=== PATIENT | male | born 1950 | race Caucasian/White ===

== ENCOUNTER 2016-08-15 14:43 | Observation (INO) | payer OTHER ==
--- NOTE | 2016-08-15 14:55 | DR.WEAKNES ---
HPI - Time Seen Time seen: 14:45 - Primary Care Physician Primary Care Physician: luigi - Complaints Chief Complaint:: patient stated he has been weak since friday but today he was unable to sit up by himself. patient stated they called dr meyers and he said to call non emergancy trans port to bring to the er. - Reviewed Nurses Notes Reviewed: Yes - Source History Provided: Patient, EMS - Mode of Arrival Mode of Arrival: EMS - Timing Onset of Chief Complaint: 08/11/16 Since onset, symptoms are:: Unchanged Symptom Onset: Known Onset of Symptoms Start Date: 08/11/16 Onset of Symptoms Start Time: 15:00 - Duration Duration: Since Onset Duration: Days - Context Onset: Spontaneous Symptoms: Weakness, Difficulty walking. denies: Difficulty talking History of: CVA Stroke Symptoms: Weakness of limb - Location Weakness Location: Right, Arm, Leg - Associated Signs and Symptoms Associated Signs and Symptoms: None PMH - PMH Past Medical History: Yes Past Medical History: Coronary Artery Disease, Diabetes, Dyslipidemia, Hypertension Past Surgical History: Yes Surgical History: CABG/Valve Surgery, Ortho Surgery - Family History History of Family Medical Conditions: Yes Family Medical History: Diabetes Mellitus, Coronary Artery Disease, Hypertension - Social History Does patient currently use any type of tobacco product: No Have you used tobacco products in the last 12 months: No Type of Tobacco Use: None Does any household member use tobacco: No Do you use any recreational Drugs:: No Lives With: Family Lives Where: Home - infectious screening In the last 2 months have you had wt loss of >10#?: NO Have you had fever, night sweats or hemotysis?: No Have you traveled outside the country in the last 6 months?: No Isolation: Standard ROS - Review of Systems Constitutional: No Symptoms Reported, Weakness Eyes: No Symptoms Reported ENTM: No Symptoms Reported Respiratoy: No Symptoms Reported Cardiovascular: No Symptoms Reported Gastrointestinal/Abdominal: No Symptoms Reported Genitourinary: No Symptoms Reported Neurological: No Symptoms Reported Musculoskeletal: No Symptoms Reported Integumentary: No Symptoms Reported Hematologic/Lymphatic: No Symptoms Reported Endocrine: No Symptoms Reported Psychiatric: Depression All Other Systems: Reviewed and Negative PE - Vital Signs Vitals: Temperature 98.3 F Pulse Rate 60 Respiratory Rate 16 Blood Pressure [Left Arm] 120/69 Blood Pressure [Right Arm] 109/54 Blood Pressure 149/58 O2 Sat by Pulse Oximetry 97 - General Limitations: No Limitations General Appearance: Alert, In No Apparent Distress - Head Head Exam: Normal Inspection - Eyes Eye exam: Normal Appearance, EOMI. negative: Scleral Icterus, Conjunctival Injection Eyelids: Normal Inspection: Bilateral Pupils: Regular, Round: Bilateral Sclera/Conjunctival: Normal Inspection: Bilateral Anterior Chamber: Normal Inspection: Bilateral - ENT ENT Exam: Normal Oropharynx, Other (poor dentition) Mouth Exam: Normal Inspection. negative: Drooling, Trismus - Neck Neck Exam: Normal Inspection, Full ROM, Trachea Midline - Chest Chest Inspection: Normal Inspection - Respiratory Respiratory Exam: Normal Lung Sounds Bilat, Accessory Muscle Use, Chest Wall Tenderness Respiratory Exam: Bilateral Clear to Auscultation - Cardiovascular Cardiovascular Exam: Regular Rate - Abdominal Exam Abdominal Exam: Normal Inspection, Normal Bowel Sounds, Soft. negative: Distention - Extremities Extremities Exam: Normal Inspection - Back Back Exam: Normal Inspection - Neurologic Neurological Exam: Alert, Oriented X3, CN II-XII Intact Patient Oriented To: Person, Place, Time Speech: Fluid Speech Cranial Nerve Exam: EOM Function (II, III, IV, ): Normal, Facial Palsy (VII): Normal, Gag reflex (XI): Normal, Spinal Accessory Function (XI): Normal, Tongue Deviation: Normal - Psychiatric Psychiatric Exam: Depressed - Skin Skin Exam: Intact, Normal Color Course - Consultation Called: 16:10 Call Returned: 16:17 Consultation Comments: Case discussed with Dr. Meyers admit for Mri tomorrow ROR - Labs Reviewed Result Diagrams: 08/15/16 15:05 08/15/16 15:05 Laboratory: WBC 5.7 X10^3/uL (3.6-10.0) 08/15/16 15:05 RBC 4.78 X10^6/uL (4.7-6.0) 08/15/16 15:05 Hgb 13.7 g/dL (13.5-18.0) 08/15/16 15:05 Hct 41.2 % (42.0-54.0) L 08/15/16 15:05 MCV 86.2 fL (80.0-100.0) 08/15/16 15:05 MCH 28.7 pg (27.0-34.0) 08/15/16 15:05 MCHC 33.3 g/dL (33.0-35.0) 08/15/16 15:05 RDW 14.8 % (11.6-16.5) 08/15/16 15:05 Plt Count 213 X10^3/uL (150.0-450.0) 08/15/16 15:05 MPV 8.7 fL (7.4-11.0) 08/15/16 15:05 Neut % 63.3 % (42.0-75.0) 08/15/16 15:05 Lymph % 24.2 % (21.0-51.0) 08/15/16 15:05 [place] % 7.7 % (0.0-13.0) 08/15/16 15:05 Eos % 3.7 % (0.9-2.9) H 08/15/16 15:05 Baso % 1.1 % (0.2-1.0) H 08/15/16 15:05 Neut # 3.6 x10^3/uL (2.2-4.8) 08/15/16 15:05 Lymph # 1.4 X10^3/uL (1.3-2.9) 08/15/16 15:05 [place] # 0.4 x10^3/uL (0.3-0.8) 08/15/16 15:05 Eos # 0.2 x10^3/uL (0.0-0.2) 08/15/16 15:05 Baso # 0.1 X10^3/uL (0.0-0.1) 08/15/16 15:05 Absolute Nucleated RBC 0.0 /100WBC 08/15/16 15:05 INR Target Range - 08/15/16 15:05 INR 3.37 (0.8-1.3) H 08/15/16 15:05 Sodium 142 mmol/L (136-145) 08/15/16 15:05 Corrected Sodium 144 mmol/L (136-145) 08/15/16 15:05 Potassium 3.9 mmol/L (3.5-5.1) 08/15/16 15:05 Chloride 103 mmol/L (98-107) 08/15/16 15:05 Carbon Dioxide 30.6 mmol/L (21-32) 08/15/16 15:05 BUN 29 mg/dL (7-18) H 08/15/16 15:05 Creatinine 1.54 mg/dL (0.70-1.30) H 08/15/16 15:05 Est GFR (MDRD) Af Amer 59 (>60) 08/15/16 15:05 Est GFR (MDRD) Non-Af 49 (>60) L 08/15/16 15:05 Glucose 197 mg/dL (65-99) H 08/15/16 15:05 Calcium 8.5 mg/dL (8.5-10.1) 08/15/16 15:05 Corrected Calcium 9.1 mg/dL (8.5-10.1) 08/15/16 15:05 Total Bilirubin 0.70 mg/dL (0.2-1.0) 08/15/16 15:05 AST 26 Units/L (15-37) 08/15/16 15:05 ALT 20 Units/L (12-78) 08/15/16 15:05 Alkaline Phosphatase 57 Units/L (46-116) 08/15/16 15:05 Total Protein 7.1 g/dL (6.4-8.2) 08/15/16 15:05 Albumin 3.2 g/dL (3.4-5.0) L 08/15/16 15:05 Globulin 3.9 g/dL (2.5-4.5) 08/15/16 15:05 Albumin/Globulin Ratio 0.8 Ratio (1.1-2.1) L 08/15/16 15:05 - EKG Rate: 55 Rhythm: Afib Block: None Hypertrophy: None ST: Nonsp - Diagnosis Discharge Problem: Weakness - Discharge Plan Condition: Stable - Follow ups/Referrals Follow ups/Referrals: ROBERT LACEY [Primary Care Provider] - 3 days - Instructions Instructions: Weakness
[2016-08-15 15:21] LABS: BASOPHILS # (AUTO) 0.1 X10^3/uL (0.0-0.1); BASOPHILS % (AUTO) 1.1 % (0.2-1.0); EOSINOPHILS # (AUTO) 0.2 x10^3/uL (0.0-0.2); EOSINOPHILS % (AUTO) 3.7 % (0.9-2.9); HEMATOCRIT 41.2 % (42.0-54.0); HEMOGLOBIN 13.7 g/dL (13.5-18.0); LYMPHOCYTES # (AUTO) 1.4 X10^3/uL (1.3-2.9); LYMPHOCYTES % (AUTO) 24.2 % (21.0-51.0); MEAN CORPUSCULAR HEMOGLOBIN 28.7 pg (27.0-34.0); MEAN CORPUSCULAR HGB CONC 33.3 g/dL (33.0-35.0); MEAN CORPUSCULAR VOLUME 86.2 fL (80.0-100.0); MEAN PLATELET VOLUME 8.7 fL (7.4-11.0); MONOCYTES # (AUTO) 0.4 x10^3/uL (0.3-0.8); MONOCYTES % (AUTO) 7.7 % (0.0-13.0); NEUTROPHILS # (AUTO) 3.6 x10^3/uL (2.2-4.8); NEUTROPHILS % (AUTO) 63.3 % (42.0-75.0); PLATELET COUNT 213 X10^3/uL (150.0-450.0); RED BLOOD COUNT 4.78 X10^6/uL (4.7-6.0); RED CELL DISTRIBUTION WIDTH 14.8 % (11.6-16.5); WHITE BLOOD COUNT 5.7 X10^3/uL (3.6-10.0)
[2016-08-15 15:31] LABS: ALBUMIN 3.2 g/dL (3.4-5.0); CALCIUM 8.5 mg/dL (8.5-10.1); CARBON DIOXIDE 30.6 mmol/L (21-32); COR CA(FOR HYPOALB) 9.1 mg/dL (8.5-10.1); CREATININE 1.54 mg/dL (0.70-1.30); TOTAL PROTEIN 7.1 g/dL (6.4-8.2)
--- NOTE | 2016-08-15 16:18 | CT ---
HISTORY: Right-sided weakness and history of CVA. Noncontrast head CT examination. Comparison: None. Technique: Multiple axial images of the brain were obtained from the skull base to the vertex without administr ation of IV contrast. Findings: There is mild cerebral sulcal and cisternal prominence as well as atherosclerotic change i n the proximal intracranial carotid and vertebral arteries, which is not out of proportion to the pa tient's stated age. There is diffuse CT density alteration seen in the periventricular white matter of the high and mid-convexity, which is likely in the setting of small vessel disease and not out of proportion to the patient's stated age. There is no evidence for ventricular dilatation or CT evide nce for hydrocephalus or herniation syndrome. No midline shift is evident. No acute intraparenchymal hemorrhage or mass can be identified. No extra-axial fluid collections are seen. No alteration in the attenuation of the brain parenchyma can be identified to suggest acute or subacute ischemic kishan nge. However, if the patient's symptoms are clinically \T\ neurologically concerning for an acute is chemic event, then MR imaging of the brain with DWI sequencing would likely be beneficial to exclude an acute CVA. The paranasal sinuses and mastoid air cells are clear. The remaining extracranial str uctures are unremarkable in appearance as well. IMPRESSION: 1. No acute intracranial process or hemorrhage identified. 2. Age-appropriate intra-cranial changes of advancing age. Reported By:
[2016-08-15 18:51] VITALS: BMI 39.8
[2016-08-15] MEDS: NS 1000 ML 1,000 ML IV SCH (20:12)
[2016-08-15] MEDS: HumuLIN R SC PRN (20:18)
[2016-08-16 00:35] LABS: BILIRUBIN,URINE NEGATIVE (NEGATIVE); BLOOD/HEMOGLOBIN,URINE NEGATIVE (NEGATIVE); GLUCOSE, URINE NEGATIVE (NEGATIVE); KETONES,URINE NEGATIVE (NEGATIVE); LEUKOCYTE ESTERASE ,URINE 2+ (NEGATIVE); NITRITES,URINE NEGATIVE (NEGATIVE); PH,URINE 6.5 (5.0 - 8.0); PROTEIN,URINE 1+ (NEGATIVE); UROBILINOGEN,URINE 3+ (NORMAL)
[2016-08-16 00:48] LABS: APPEARANCE,URINE SLIGHTLY HAZY (CLEAR); BACTERIA,URINE NEGATIVE /HPF (NEGATIVE); COLOR,URINE AMBER (YELLOW); RBC,URINE 0-3 /HPF (NEGATIVE); SQUAMOUS EPITHELIAL CELL,UR FEW /HPF (NEGATIVE)
[2016-08-16 00:49] LABS: SPERM,URINE FEW /HPF (NEGATIVE)
[2016-08-16] MEDS: NS 1000 ML 1,000 ML IV SCH ×3 (05:42→23:54)
[2016-08-16 05:59] LABS: ALANINE AMINOTRANSFERASE 19 Units/L (12-78); ALBUMIN 3.2 g/dL (3.4-5.0); ALKALINE PHOSPHATASE 52 Units/L (46-116); ASPARTATE AMINO TRANSFERASE 26 Units/L (15-37); BLOOD UREA NITROGEN 26 mg/dL (7-18); CALCIUM 8.8 mg/dL (8.5-10.1); CARBON DIOXIDE 30.1 mmol/L (21-32); CHLORIDE 104 mmol/L (98-107); COR CA(FOR HYPOALB) 9.4 mg/dL (8.5-10.1); COR NA(FOR HYPERGLY) 144 mmol/L (136-145); CREATININE 1.42 mg/dL (0.70-1.30); GLUCOSE 167 mg/dL (65-99); SODIUM 142 mmol/L (136-145); TOTAL PROTEIN 7.1 g/dL (6.4-8.2); eGFR BLACK RACES > 60 (>60); eGFR NON BLACK RACES 54 (>60)
[2016-08-16 06:11] LABS: BASOPHILS # (AUTO) 0.1 X10^3/uL (0.0-0.1); BASOPHILS % (AUTO) 1.3 % (0.2-1.0); EOSINOPHILS # (AUTO) 0.2 x10^3/uL (0.0-0.2); EOSINOPHILS % (AUTO) 3.4 % (0.9-2.9); HEMATOCRIT 42.2 % (42.0-54.0); HEMOGLOBIN 13.9 g/dL (13.5-18.0); LYMPHOCYTES # (AUTO) 1.7 X10^3/uL (1.3-2.9); LYMPHOCYTES % (AUTO) 24.6 % (21.0-51.0); MEAN CORPUSCULAR HEMOGLOBIN 28.7 pg (27.0-34.0); MEAN CORPUSCULAR HGB CONC 32.9 g/dL (33.0-35.0); MEAN CORPUSCULAR VOLUME 87.2 fL (80.0-100.0); MONOCYTES # (AUTO) 0.4 x10^3/uL (0.3-0.8); MONOCYTES % (AUTO) 6.1 % (0.0-13.0); NEUTROPHILS # (AUTO) 4.5 x10^3/uL (2.2-4.8); NEUTROPHILS % (AUTO) 64.6 % (42.0-75.0); PLATELET COUNT 205 X10^3/uL (150.0-450.0); RED BLOOD COUNT 4.84 X10^6/uL (4.7-6.0); RED CELL DISTRIBUTION WIDTH 14.8 % (11.6-16.5)
[2016-08-16] MEDS ORDERED: BUTT CREAM (COMPOUND) ONE (11:49)
[2016-08-16] MEDS ORDERED: NORCO 10/325 TAB PO PRN (13:33)
[2016-08-16] MEDS ORDERED: [UNRECOGNIZED DRUG - OTHER] PO SCH (14:00)
--- NOTE | 2016-08-16 14:21 | MRI ---
MRI OF THE BRAIN WITHOUT AND WITH IV CONTRAST MRA OF THE BRAIN WITHOUT IV CONTRAST CLINICAL INDICATION: Weakness and history of CVA. TECHNIQUE: Pre-contrast T1-w, T2, and diffusion-w sequences of the brain with ADC maps. Post-contras t images of the brain. Intravenous contrast material was administered for the examination. 3-D time- of-flight imaging of the intracranial circulation was performed. COMPARISON: CT HEAD 08/15/2016 FINDINGS: MRI brain: Diffuse patchy and confluent periventricular and subcortical T2/FLAIR signal with associa guy volume loss.. There is no mass or mass-effect, or abnormal extra-axial fluid collection. Diffus ion imaging shows no hyperacute, acute, or early subacute infarction. The ventricles are normal in s ize, shape and position. There are normal signal voids in the larger intracranial vessels. The paran [place] sinuses and mastoid air cells are predominantly clear. 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 There is no abnormal brain parenchymal or leptomeningeal enhancement. MRA head:The anterior circulation demonstrates normal anatomic findings. The internal carotid arter y, M1 segment, and A1 segments do not demonstrates atherosclerotic changes. No aneurysmal changes o r evidence for vascular malformation can be identified. Posterior communicating arteries are not we ll defined. The basal vertebral system is normal in its appearance. IMPRESSION: 1. No acute intracranial abnormality. Diffuse patchy and confluent periventricular and subcortical T 2/FLAIR signal with associated volume loss. 2. Normal MRA of the brain. Reported By:
--- NOTE | 2016-08-16 14:48 | DR.H&P ---
H&P - History & Physical for Day of: H&P Date: 08/15/16 - Chief Complaint Chief Complaint: WEAKNESS, UNABLE TO SIT OR STAND - Allergies Allergies/Adverse Reactions: Allergies Allergy/AdvReac Type Severity Reaction Status Date / Time Penicillins Allergy Unknown Verified 01/21/14 19:24 - History of Present Illness History of Present Illness: THIS IS A 65 YEAR OLD MALE, WHO IS A PATIENT OF OURS. HE PRESENTS TO THE EMERGENCY ROOM, VIA EMS, WITH COMPLAINTS OF WEAKNESS WITH INABILITY TO STAND OR SIT UP BY HIMSELF. PATIENT REPORTS SYMPTOMS STARTED 08/11/16 AND HAVEN'T IMPROVED. HE REPORTS WORSENING WEAKNESS. PATIENT' S PRIOR LEVEL OF FUNCTION WAS AMBULATING AND TAKING CARE OF HIMSELF AT HOME. PATIENT HAS NO DIFFICULTY WITH SPEECH OR COMPLETING THOUGHTS. VITAL SIGNS STABLE ON ARRIVAL. LABS AND CT OBTAINED. CBC WNL EXCEPT: HCT 41.2. CMP WNL EXCEPT: BUN/CREAT 29/1.54, GFR 49, GLUCOSE 197, ALBUMIN 3.2. INR 3.37. URINALYSIS WNL. TOXICOLOGY POSITIVE FOR OPIATES, WHICH IS CONCURRENT WITH PATIENT'S HOME MEDICATIONS. BRAIN CT REPORTS: NO ACUTE INTRACRANIAL PROCESS OR HEMORRHAGE; AGE APPROPRIATE INTRA-CRANIAL CHANGES OF ADVANCING AGE. EKG: ATRIAL FIBRILLATION, RATE 55. PATIENT HAS A HISTORY SIGNIFICANT FOR CAD, HYPERTENSION, ATRIAL FIBRILLATION, AND VALVULAR HEART DISEASE WITH VALVE SURGERY. WE WILL ADMIT PATIENT FOR FURTHER TREATMENT AND EVALUATION. WE WILL MONTIOR ON TELEMETRY AND PLAN FOR MRI IN AM. WE WILL FOLLOW UP WITH ADDITIONAL LABS IN AM. - Past Medical History Past Medical History: Angina, Anxiety, Arthritis, Coronary Artery Disease, Depression, Diabetes, Dyslipidemia, Hypertension, Kidney Stones Additional Medical History: Atrial fibrillation, Valvular Hear Disease, Pneumonia, Muscle Weakness, Back Pain - Past Surgical History Surgical History: CABG/Valve Surgery, Ortho Surgery Additional Surgical History: Femur Surgery, Ankle Surgery, Left Shoulder Replacment, Metal Heart Valve - Family History Family Medical History: Diabetes Mellitus, Coronary Artery Disease, Hypertension - Social History Does patient currently use any type of tobacco product: No Have you used tobacco products in the last 12 months: No Type of Tobacco Use: None Does any household member use tobacco: No Alcohol Use: None Drug Use: None - Medications Home Medications: Clonazepam [Clonazepam] 1 mg PO HS 08/15/16 [History Confirmed 08/15/16] Finasteride [PROSCAR 5 MG *] 5 mg PO DAILY 08/15/16 [History Confirmed 08/15/16] Fluticasone-Salmeterol 250/50 [ADVAIR DISKUS 250/50 60-DOSE *] 1 inh INH BID [History Confirmed 08/15/16] Furosemide [LASIX TAB 40 MG *] 80 mg PO DAILY 08/15/16 [History Confirmed ] Hydroxyzine HCl 50 mg PO TID PRN 08/15/16 [History Confirmed 08/15/16] Insulin Aspart [Novolog Flexpen] 0 units SUBCUT ACHS 08/15/16 [History Confirmed 08/15/16] Insulin Degludec [Tresiba Flextouch] 0 - 60 units SUBCUT BID 08/15/16 [History Confirmed 08/16/16] Misc Home Med [Patient's Home Medication (Non-PO)] 1 cap PO .TWICE A WEEK [History Confirmed 08/15/16] Morphine Sulfate [Ms Contin] 30 mg PO BID 08/15/16 [History Confirmed 08/15/16] Potassium Chloride [Klor-Con Sprinkle] 10 meq PO QID 08/15/16 [History Confirmed 08/15/16] Ropinirole Hydrochloride [Ropinirole HCl] 4 mg PO TID 08/15/16 [History Confirmed 08/15/16] Sertraline HCl [ZOLOFT 100 MG *] 100 mg PO DAILY 08/15/16 [History Confirmed ] Tamsulosin HCl 0.4 mg PO HS 08/15/16 [History Confirmed 08/15/16] Warfarin Sodium [Warfarin Sodium] 6 mg PO DAILY 08/15/16 [History Confirmed ] - Review of Systems Constitutional: Weakness, Malaise Eyes: No Symptoms Reported. denies: Pain, Vision Change, Conjunctivae Inflammation, Eyelid Inflammation, Redness ENT: No Symptoms Reported. denies: Ear Pain, Ear Discharge, Nose Pain, Nose Discharge, Nose Congestion, Mouth Pain, Mouth Swelling, Throat Pain, Throat Swelling Respiratory: No Symptoms Reported. denies: Cough, Shortness of Breath, Hemoptysis, SOB with Excertion, Pleuritic Pain, Sputum, Wheezing Cardiovascular: No Symptoms Reported. denies: Chest Pain, Palpitations, Orthopnea, Paroxysmal Noc. Dyspnea, Edema, Light Headedness Gastrointestinal: No Symptoms Reported. denies: Nausea, Vomiting, Abdominal Pain, Diarrhea, Constipation, Melena, Hematochezia Genitourinary: No Symptoms Reported. denies: Dysuria, Frequency, Incontinence, Hematuria, Retention Musculoskeletal: Other (Generalized Muscle Weakness) Skin: No Symptoms Reported. denies: Rash, Lesions Neurological: No Symptoms Reported. denies: Weakness, Numbness, Incoordination , Change in Speech, Confusion, Seizures - Physical Exam Vital Signs: Temperature 97 F Pulse Rate [Left Radial] 63 Respiratory Rate 15 Blood Pressure [Left Arm] 114/38 O2 Sat by Pulse Oximetry 97 Oriented: Normal, Time, Person, Place Eyes: Normal. negative: Blurred Vision, Diplopia, Discharge, Pain, Redness, Photophobia Ear: Normal. negative: Swelling, Ecchymosis, Hemotypanum, Abrasion, Laceration Nose: Normal. negative: Injected, Discharge, Blood Throat: Normal. negative: Tonsillar Hypertrophy, Red, Exudate Respiratory: Clear Throughout Cardiovascular: Irregular (Irreg, Irreg). negative: Murmur, Edema : Normal. negative: Dysuria, Hematuria, Frequency, Discharge, Testicular Pain Auscultation: Bowel Sounds: Normal. negative: Bruit Palpation: Normal. negative: Spleen Enlarged, Liver Enlarged, Mass Pulsatile Tenderness: Normal. negative: Rebound, Guarding, Rigidity Skin: Decreased [place]urg[place]. negative: Diaphoresis, Wound, Bruising, Ecchymosis Musculoskeletal: Instability Psychiatric: Normal Mood Description: Calm, Appropriate Affect: Normal Speech Pattern: Clear, Appropriate - Assessment/Plan (1) Weakness Status: Acute Plan: ADMIT PATIENT, START IV FLUIDS, MRI IN AM, MONITOR. (2) Atrial fibrillation Qualifiers: Atrial fibrillation type: chronic Qualified Code(s): I48.2 - Chronic atrial fibrillation Status: Chronic (3) Coronary atherosclerosis of [place] coronary artery Qualifiers: [place] vs. transplanted heart: N Associated angina: A Status: Chronic (4) Diabetic neuropathy Qualifiers: Diabetes mellitus type: D Diabetes mellitus complication detail: D Status: Chronic (5) Essential hypertension, benign Status: Chronic (6) Mixed hyperlipidemia Status: Chronic (7) Pain in joint, multiple sites Status: Chronic (8) Type II diabetes mellitus, uncontrolled Qualifiers: Diabetes mellitus complication status: D Diabetes mellitus complication detail: D Diabetic retinopathy severity: D Proliferative retinopathy type: P Diabetes mellitus macular edema: D Diabetes mellitus mcc insulin use : D Laterality: L Chronic kidney disease stage: C Status: Chronic
[2016-08-16] MEDS ORDERED: ZOLOFT PO ONE (15:18)
[2016-08-16] MEDS: ZAROXOYLN PO SCH (15:23)
[2016-08-16] MEDS: PROSCAR PO SCH (15:23)
[2016-08-16] MEDS: M.S. CONTIN 30 MG EXTENDED RELEASE PO SCH ×2 (15:23→21:24)
[2016-08-16] MEDS: PriLOSEC PO SCH ×2 (15:24→21:25)
[2016-08-16] MEDS: LASIX PO SCH (15:24)
[2016-08-16] MEDS: ZOLOFT PO SCH (15:25)
[2016-08-16] MEDS: HumuLIN R SC PRN ×2 (17:11→21:27)
--- NOTE | 2016-08-16 18:49 | PCM.PROG ---
Progress Note - Progress Note for Day of Date: 08/16/16 - Subjective Subjective: PATIENT CONTINUES WITH SEVERE GENERALIZED WEAKNESS. PATIENT CONTINUES TO BE UNABLE TO STAND. PATIENT IS SCHEDULED FOR AN MRI OF BRAIN TODAY TO RULE OUT CVA. VITALS ARE STABLE. AT BEDSIDE. CBC WNL. CMP WNL EXCEPT: BUN/CREAT 26/1.42, GFR 54, GLUCOSE 167, ALBUMIN 3.2. WE WILL CONSULT PHYSICAL THERAPY FOR MUSCLE STRENGTHENING, CONTINUE TO MONITOR ON TELEMETRY, AND FOLLOW UP IN AM WITH LABS. - Past Medical Family Social History Past Med/Fam/Surg Hx: No changes since H&P Allergies: Allergies Penicillins Allergy (Unknown, Verified 01/21/14 19:24) - Review of Systems ROS: No change since H&P - Vital Signs and I&O's Vital Signs: Temperature 97 F Pulse Rate [Left Radial] 63 Respiratory Rate 15 Blood Pressure [Left Arm] 114/38 O2 Sat by Pulse Oximetry 97 Intake and Output: Intake & Output 08/14/16 08/15/16 08/16/16 08/17/16 11:59 11:59 11:59 11:59 Intake Total 1379 2050 Output Total 450 900 Balance 929 1150 - Physical Exam Oriented: Normal, Time, Person, Place Eyes: Normal. negative: Blurred Vision, Diplopia, Discharge, Pain, Redness, Photophobia Ear: Normal. negative: Swelling, Ecchymosis, Hemotypanum, Abrasion, Laceration Nose: Normal. negative: Injected, Discharge, Blood Throat: Normal. negative: Tonsillar Hypertrophy, Red, Exudate Respiratory: Normal Cardiovascular: Irregular (Irreg, Irreg). negative: Murmur, Edema : Normal. negative: Dysuria, Hematuria, Frequency, Discharge, Testicular Pain Auscultation: Bowel Sounds: Normal. negative: Bruit Palpation: Normal. negative: Spleen Enlarged, Liver Enlarged, Mass Pulsatile Tenderness: Normal. negative: Rebound, Guarding, Rigidity Skin: Decreased Turgur. negative: Diaphoresis, Wound, Bruising, Ecchymosis Musculoskeletal: Instability Psychiatric: Normal Mood Description: Calm, Appropriate Affect: Normal Speech Pattern: Clear - Laboratory and Diagnostics Result Diagrams: 08/16/16 05:07 08/16/16 05:07 Labs: Laboratory WBC 7.0 X10^3/uL (3.6-10.0) 08/16/16 05:07 RBC 4.84 X10^6/uL (4.7-6.0) 08/16/16 05:07 Hgb 13.9 g/dL (13.5-18.0) 08/16/16 05:07 Hct 42.2 % (42.0-54.0) 08/16/16 05:07 MCV 87.2 fL (80.0-100.0) 08/16/16 05:07 MCH 28.7 pg (27.0-34.0) 08/16/16 05:07 MCHC 32.9 g/dL (33.0-35.0) L 08/16/16 05:07 RDW 14.8 % (11.6-16.5) 08/16/16 05:07 Plt Count 205 X10^3/uL (150.0-450.0) 08/16/16 05:07 MPV 9.0 fL (7.4-11.0) 08/16/16 05:07 Neut % 64.6 % (42.0-75.0) 08/16/16 05:07 Lymph % 24.6 % (21.0-51.0) 08/16/16 05:07 [place] % 6.1 % (0.0-13.0) 08/16/16 05:07 Eos % 3.4 % (0.9-2.9) H 08/16/16 05:07 Baso % 1.3 % (0.2-1.0) H 08/16/16 05:07 Neut # 4.5 x10^3/uL (2.2-4.8) 08/16/16 05:07 Lymph # 1.7 X10^3/uL (1.3-2.9) 08/16/16 05:07 [place] # 0.4 x10^3/uL (0.3-0.8) 08/16/16 05:07 Eos # 0.2 x10^3/uL (0.0-0.2) 08/16/16 05:07 Baso # 0.1 X10^3/uL (0.0-0.1) 08/16/16 05:07 Absolute Nucleated RBC 0.1 /100WBC 08/16/16 05:07 INR Target Range - 08/16/16 13:50 INR 3.11 (0.8-1.3) H 08/16/16 13:50 Sodium 142 mmol/L (136-145) 08/16/16 05:07 Corrected Sodium 144 mmol/L (136-145) 08/16/16 05:07 Potassium 4.1 mmol/L (3.5-5.1) 08/16/16 05:07 Chloride 104 mmol/L (98-107) 08/16/16 05:07 Carbon Dioxide 30.1 mmol/L (21-32) 08/16/16 05:07 BUN 26 mg/dL (7-18) H 08/16/16 05:07 Creatinine 1.42 mg/dL (0.70-1.30) H 08/16/16 05:07 Est GFR (MDRD) Af Amer > 60 (>60) 08/16/16 05:07 Est GFR (MDRD) Non-Af 54 (>60) L 08/16/16 05:07 Glucose 167 mg/dL (65-99) H 08/16/16 05:07 Calcium 8.8 mg/dL (8.5-10.1) 08/16/16 05:07 Corrected Calcium 9.4 mg/dL (8.5-10.1) 08/16/16 05:07 Total Bilirubin 0.60 mg/dL (0.2-1.0) 08/16/16 05:07 AST 26 Units/L (15-37) 08/16/16 05:07 ALT 19 Units/L (12-78) 08/16/16 05:07 Alkaline Phosphatase 52 Units/L (46-116) 08/16/16 05:07 Total Protein 7.1 g/dL (6.4-8.2) 08/16/16 05:07 Albumin 3.2 g/dL (3.4-5.0) L 08/16/16 05:07 Globulin 3.9 g/dL (2.5-4.5) 08/16/16 05:07 Albumin/Globulin Ratio 0.8 Ratio (1.1-2.1) L 08/16/16 05:07 Specimen Type Random urine 08/16/16 00:14 Urine Color [place] (YELLOW) 08/16/16 00:14 Urine Appearance Slightly hazy (CLEAR) 08/16/16 00:14 Urine pH 6.5 (5.0 - 8.0) 08/16/16 00:14 Ur Specific [place] 1.015 (1.000-1.030) 08/16/16 00:14 Urine Protein 1+ (NEGATIVE) 08/16/16 00:14 Urine Glucose (UA) Negative (NEGATIVE) 08/16/16 00:14 Urine Ketones Negative (NEGATIVE) 08/16/16 00:14 Urine Occult Blood Negative (NEGATIVE) 08/16/16 00:14 Urine Nitrite Negative (NEGATIVE) 08/16/16 00:14 Urine Bilirubin Negative (NEGATIVE) 08/16/16 00:14 Urine Urobilinogen 3+ (NORMAL) 08/16/16 00:14 Ur Leukocyte Esterase 2+ (NEGATIVE) 08/16/16 00:14 Urine RBC 0-3 /HPF (NEGATIVE) 08/16/16 00:14 Urine WBC 2-6 /HPF (NEGATIVE) 08/16/16 00:14 Ur Squamous Epith Cells Few /HPF (NEGATIVE) 08/16/16 00:14 Urine Bacteria Negative /HPF (NEGATIVE) 08/16/16 00:14 Urine Sperm Few /HPF (NEGATIVE) 08/16/16 00:14 Ur Culture Indicated? No/not indicated 08/16/16 00:14 Digoxin 1.07 ng/mL (0.9-2) 08/16/16 13:50 Urine Opiates Screen Positive (NEG=<300) 08/16/16 00:14 Urine Methadone Screen Negative (NEG=<300) 08/16/16 00:14 Ur Barbiturates Screen Negative (NEG=<200) 08/16/16 00:14 Ur Phencyclidine Scrn Negative (NEG=<25) 08/16/16 00:14 Ur Amphetamines Screen Negative (NEG=<1000) 08/16/16 00:14 U Benzodiazepines Scrn Positive (NEG=<200) 08/16/16 00:14 Urine Cocaine Screen Negative (NEG=<300) 08/16/16 00:14 U Marijuana (THC) Screen Negative (NEG=<50) 08/16/16 00:14 - Plan (1) Weakness Status: Acute Plan: CONSULT PHYSICAL THERAPY, OBTAIN MRI TODAY, CONTINUE IV FLUIDS, MONITOR. (2) Dehydration Status: Acute Plan: CONTINUE IV FLUIDS, MONITOR LABS. (3) Atrial fibrillation Status: Chronic Qualifiers: Atrial fibrillation type: chronic Qualified Code(s): I48.2 - Chronic atrial fibrillation (4) Coronary atherosclerosis of [place] coronary artery Status: Chronic Qualifiers: [place] vs. transplanted heart: N Associated angina: A (5) Diabetic neuropathy Status: Chronic Qualifiers: Diabetes mellitus type: D Diabetes mellitus complication detail: D (6) Essential hypertension, benign Status: Chronic (7) Mixed hyperlipidemia Status: Chronic (8) Pain in joint, multiple sites Status: Chronic (9) Type II diabetes mellitus, uncontrolled Status: Chronic Qualifiers: Diabetes mellitus complication status: D Diabetes mellitus complication detail: D Diabetic retinopathy severity: D Proliferative retinopathy type: P Diabetes mellitus macular edema: D Diabetes mellitus nursing home insulin use : D Laterality: L Chronic kidney disease stage: C
[2016-08-16] MEDS: ADVAIR DISKUS 250/50 IN SCH (20:37)
[2016-08-16] MEDS: SNACK - Diabetic Appropriate PO SCH (21:00)
[2016-08-16] MEDS: REQUIP PO SCH (21:24)
[2016-08-16] MEDS: KLONOPIN TAB 1 MG PO SCH (21:25)
[2016-08-16] MEDS: FLOMAX PO SCH (21:25)
[2016-08-16] MEDS: COUMADIN TAB 6 MG PO SCH (21:25)
[2016-08-16] MEDS: FENOFIBRATE PO SCH (21:26)
[2016-08-17] MEDS: NS 1000 ML 1,000 ML IV SCH ×2 (00:40→13:56)
[2016-08-17 05:28] LABS: BASOPHILS # (AUTO) 0.1 X10^3/uL (0.0-0.1); BASOPHILS % (AUTO) 1.2 % (0.2-1.0); EOSINOPHILS # (AUTO) 0.1 x10^3/uL (0.0-0.2); EOSINOPHILS % (AUTO) 2.1 % (0.9-2.9); HEMATOCRIT 40.6 % (42.0-54.0); HEMOGLOBIN 13.4 g/dL (13.5-18.0); LYMPHOCYTES # (AUTO) 1.4 X10^3/uL (1.3-2.9); LYMPHOCYTES % (AUTO) 23.4 % (21.0-51.0); MEAN CORPUSCULAR HEMOGLOBIN 28.6 pg (27.0-34.0); MEAN CORPUSCULAR HGB CONC 32.9 g/dL (33.0-35.0); MEAN CORPUSCULAR VOLUME 86.8 fL (80.0-100.0); MEAN PLATELET VOLUME 8.6 fL (7.4-11.0); MONOCYTES # (AUTO) 0.4 x10^3/uL (0.3-0.8); NEUTROPHILS # (AUTO) 3.9 x10^3/uL (2.2-4.8); NEUTROPHILS % (AUTO) 66.3 % (42.0-75.0); PLATELET COUNT 197 X10^3/uL (150.0-450.0); RED BLOOD COUNT 4.67 X10^6/uL (4.7-6.0); RED CELL DISTRIBUTION WIDTH 14.6 % (11.6-16.5); WHITE BLOOD COUNT 5.8 X10^3/uL (3.6-10.0)
[2016-08-17] MEDS: REQUIP PO SCH ×3 (05:31→20:51)
[2016-08-17 05:38] LABS: ALANINE AMINOTRANSFERASE 19 Units/L (12-78); ALBUMIN 3.1 g/dL (3.4-5.0); ALKALINE PHOSPHATASE 51 Units/L (46-116); ASPARTATE AMINO TRANSFERASE 31 Units/L (15-37); BLOOD UREA NITROGEN 21 mg/dL (7-18); CALCIUM 8.2 mg/dL (8.5-10.1); CARBON DIOXIDE 31.3 mmol/L (21-32); CHLORIDE 101 mmol/L (98-107); COR CA(FOR HYPOALB) 8.9 mg/dL (8.5-10.1); COR NA(FOR HYPERGLY) 143 mmol/L (136-145); CREATININE 1.36 mg/dL (0.70-1.30); GLUCOSE 264 mg/dL (65-99); SODIUM 139 mmol/L (136-145); eGFR BLACK RACES > 60 (>60); eGFR NON BLACK RACES 56 (>60)
[2016-08-17 05:40] LABS: HEMOGLOBIN A1C 8.2 % (4.5-6.2)
[2016-08-17] MEDS: HumuLIN R SC PRN ×4 (06:11→20:52)
[2016-08-17] MEDS ORDERED: ZOLOFT PO ONE (08:30)
[2016-08-17] MEDS: LASIX PO SCH (08:53)
[2016-08-17] MEDS: ZOLOFT PO SCH (08:53)
[2016-08-17] MEDS: PriLOSEC PO SCH ×2 (08:53→20:49)
[2016-08-17] MEDS: PROSCAR PO SCH (08:53)
[2016-08-17] MEDS: M.S. CONTIN 30 MG EXTENDED RELEASE PO SCH ×2 (08:53→20:49)
[2016-08-17] MEDS: ZAROXOYLN PO SCH (08:53)
[2016-08-17] MEDS: ADVAIR DISKUS 250/50 IN SCH ×2 (08:59→20:15)
[2016-08-17] MEDS ORDERED: TRICOR TAB 145 MG PO SCH (09:00)
[2016-08-17] MEDS: KLONOPIN TAB 1 MG PO SCH (20:49)
[2016-08-17] MEDS: FLOMAX PO SCH (20:51)
[2016-08-17] MEDS: COUMADIN TAB 6 MG PO SCH (20:54)
[2016-08-17] MEDS: FENOFIBRATE PO SCH (20:55)
[2016-08-17] MEDS: SNACK - Diabetic Appropriate PO SCH (20:58)
[2016-08-18] MEDS: NS 1000 ML 1,000 ML IV SCH ×2 (03:34→16:28)
[2016-08-18] MEDS: HumuLIN R SC PRN ×4 (05:41→21:01)
[2016-08-18] MEDS: REQUIP PO SCH ×3 (05:41→20:59)
[2016-08-18 06:58] LABS: BASOPHILS # (AUTO) 0.1 X10^3/uL (0.0-0.1); EOSINOPHILS # (AUTO) 0.2 x10^3/uL (0.0-0.2); HEMOGLOBIN 12.7 g/dL (13.5-18.0); WHITE BLOOD COUNT 7.1 X10^3/uL (3.6-10.0)
[2016-08-18 07:01] LABS: BASOPHILS % (AUTO) 1.2 % (0.2-1.0); EOSINOPHILS % (AUTO) 2.9 % (0.9-2.9); HEMATOCRIT 38.6 % (42.0-54.0); LYMPHOCYTES # (AUTO) 1.5 X10^3/uL (1.3-2.9); LYMPHOCYTES % (AUTO) 21.2 % (21.0-51.0); MEAN CORPUSCULAR HEMOGLOBIN 28.6 pg (27.0-34.0); MEAN CORPUSCULAR HGB CONC 32.8 g/dL (33.0-35.0); MEAN CORPUSCULAR VOLUME 87.3 fL (80.0-100.0); MEAN PLATELET VOLUME 8.8 fL (7.4-11.0); MONOCYTES # (AUTO) 0.4 x10^3/uL (0.3-0.8); MONOCYTES % (AUTO) 6.3 % (0.0-13.0); NEUTROPHILS # (AUTO) 4.8 x10^3/uL (2.2-4.8); NEUTROPHILS % (AUTO) 68.4 % (42.0-75.0); PLATELET COUNT 200 X10^3/uL (150.0-450.0); RED BLOOD COUNT 4.43 X10^6/uL (4.7-6.0); RED CELL DISTRIBUTION WIDTH 14.7 % (11.6-16.5)
[2016-08-18 07:19] LABS: ALANINE AMINOTRANSFERASE 21 Units/L (12-78); ALBUMIN 3.1 g/dL (3.4-5.0); ALKALINE PHOSPHATASE 50 Units/L (46-116); ASPARTATE AMINO TRANSFERASE 28 Units/L (15-37); BLOOD UREA NITROGEN 18 mg/dL (7-18); CALCIUM 8.4 mg/dL (8.5-10.1); CARBON DIOXIDE 28.9 mmol/L (21-32); CHLORIDE 102 mmol/L (98-107); COR CA(FOR HYPOALB) 9.1 mg/dL (8.5-10.1); COR NA(FOR HYPERGLY) 145 mmol/L (136-145); CREATININE 1.28 mg/dL (0.70-1.30); GLUCOSE 300 mg/dL (65-99); SODIUM 140 mmol/L (136-145); TOTAL PROTEIN 6.7 g/dL (6.4-8.2); eGFR BLACK RACES > 60 (>60); eGFR NON BLACK RACES > 60 (>60)
[2016-08-18] MEDS ORDERED: ZOLOFT PO ONE (08:31)
[2016-08-18] MEDS: M.S. CONTIN 30 MG EXTENDED RELEASE PO SCH ×2 (08:38→20:59)
[2016-08-18] MEDS: ZOLOFT PO SCH (08:38)
[2016-08-18] MEDS: PROSCAR PO SCH (08:38)
[2016-08-18] MEDS: LASIX PO SCH (08:38)
[2016-08-18] MEDS: PriLOSEC PO SCH ×2 (08:38→21:00)
[2016-08-18] MEDS: ZAROXOYLN PO SCH (08:38)
[2016-08-18] MEDS: ADVAIR DISKUS 250/50 IN SCH ×2 (08:51→20:19)
[2016-08-18] MEDS: KLONOPIN TAB 1 MG PO SCH (21:00)
[2016-08-18] MEDS: FLOMAX PO SCH (21:00)
[2016-08-18] MEDS: COUMADIN TAB 6 MG PO SCH (21:00)
[2016-08-18] MEDS: SNACK - Diabetic Appropriate PO SCH (21:05)
[2016-08-18] MEDS: FENOFIBRATE PO SCH (21:05)
[2016-08-19 05:21] LABS: ALANINE AMINOTRANSFERASE 31 Units/L (12-78); ALKALINE PHOSPHATASE 54 Units/L (46-116); ASPARTATE AMINO TRANSFERASE 29 Units/L (15-37); BLOOD UREA NITROGEN 16 mg/dL (7-18); CALCIUM 8.6 mg/dL (8.5-10.1); CHLORIDE 101 mmol/L (98-107); COR CA(FOR HYPOALB) 9.4 mg/dL (8.5-10.1); COR NA(FOR HYPERGLY) 142 mmol/L (136-145); CREATININE 1.32 mg/dL (0.70-1.30); GLUCOSE 303 mg/dL (65-99); SODIUM 137 mmol/L (136-145); TOTAL PROTEIN 6.8 g/dL (6.4-8.2); eGFR BLACK RACES > 60 (>60); eGFR NON BLACK RACES 58 (>60)
[2016-08-19] MEDS: REQUIP PO SCH ×3 (05:56→21:50)
[2016-08-19] MEDS: NS 1000 ML 1,000 ML IV SCH ×2 (06:00→19:04)
[2016-08-19] MEDS: HumuLIN R SC PRN ×4 (06:03→21:32)
[2016-08-19] MEDS ORDERED: ZOLOFT PO ONE (08:17)
[2016-08-19] MEDS: ADVAIR DISKUS 250/50 IN SCH ×2 (08:18→20:52)
[2016-08-19 09:05] LABS: BASOPHILS # (AUTO) 0.1 X10^3/uL (0.0-0.1); BASOPHILS % (AUTO) 1.1 % (0.2-1.0); EOSINOPHILS # (AUTO) 0.2 x10^3/uL (0.0-0.2); EOSINOPHILS % (AUTO) 2.6 % (0.9-2.9); HEMATOCRIT 39.7 % (42.0-54.0); HEMOGLOBIN 12.9 g/dL (13.5-18.0); LYMPHOCYTES # (AUTO) 1.5 X10^3/uL (1.3-2.9); LYMPHOCYTES % (AUTO) 19.2 % (21.0-51.0); MEAN CORPUSCULAR HEMOGLOBIN 28.5 pg (27.0-34.0); MEAN CORPUSCULAR HGB CONC 32.6 g/dL (33.0-35.0); MEAN CORPUSCULAR VOLUME 87.5 fL (80.0-100.0); MEAN PLATELET VOLUME 8.8 fL (7.4-11.0); MONOCYTES # (AUTO) 0.5 x10^3/uL (0.3-0.8); MONOCYTES % (AUTO) 6.5 % (0.0-13.0); NEUTROPHILS # (AUTO) 5.4 x10^3/uL (2.2-4.8); NEUTROPHILS % (AUTO) 70.6 % (42.0-75.0); PLATELET COUNT 205 X10^3/uL (150.0-450.0); RED BLOOD COUNT 4.53 X10^6/uL (4.7-6.0); RED CELL DISTRIBUTION WIDTH 15.1 % (11.6-16.5); WHITE BLOOD COUNT 7.7 X10^3/uL (3.6-10.0)
[2016-08-19] MEDS: LASIX PO SCH (09:08)
[2016-08-19] MEDS: PROSCAR PO SCH (09:08)
[2016-08-19] MEDS: ZAROXOYLN PO SCH (09:08)
[2016-08-19] MEDS: PriLOSEC PO SCH ×2 (09:09→21:31)
[2016-08-19] MEDS: M.S. CONTIN 30 MG EXTENDED RELEASE PO SCH ×2 (09:09→21:31)
[2016-08-19] MEDS: ZOLOFT PO SCH (09:10)
[2016-08-19] MEDS ORDERED: [UNRECOGNIZED DRUG - OTHER] PO PRN (14:03)
[2016-08-19] MEDS ORDERED: ATARAX TAB 25 MG PO PRN (14:19)
--- NOTE | 2016-08-19 14:32 | PCM.PROG ---
Progress Note - Progress Note for Day of Date: 08/19/16 - Subjective Subjective: PATIENT RESTS IN BED, AT BEDSIDE. MRI LAST WEEK REPORTED NO ACUTE INRACRANIAL ABNORMALITY; DIFFUSE PATCHY AND CONFLUENT PERIVENTRICULAR AND SUBCORTICAL T2/FLAIR SIGNAL WITH ASSOCIATED VOLUME LOSS; NORMAL MRA OF THE BRAIN. WE DISCUSS REPORT WITH PATIENT AND . THEY BOTH VOICE UNDERSTANDING. REPORTS PERIODS OF CONFUSION WITH THIS VISIT AND WE DISCUSS , IN DETAIL, VASCULAR DEMENTIA. PATIENT HAS A HISTORY OF CVA AND IN. PATIENT CONTINUES WITH SEVERE GENERALIZED WEAKNESS WITH INABILITY TO WALK OR STAND FOR ANY LENGTH OF TIME. WE DISCUSS POSSIBLE SHORT-TERM REHAB AT [facility] FOR FURTHER PHYSICAL THERAPY AND REHABILITATION. PATIENT AND ARE IN AGREEMENT WITH PLANS. CBC WNL EXCEPT: H/H 12.9/39.7. CMP WNL EXCEPT: CREAT 1.32, GFR 58, GLUCOSE 303, ALBUMIN 3.0. WE WILL CONTINUE PHYSICAL THERAPY WITH DISCHARGE TO [facility] WHEN BED IS AVAILABLE. WE WILL FOLLOW UP IN AM WITH LABS. - Past Medical Family Social History Past Med/Fam/Surg Hx: No changes since H&P Allergies: Allergies Penicillins Allergy (Unknown, Verified 01/21/14 19:24) - Review of Systems ROS: No change since H&P - Vital Signs and I&O's Vital Signs: Temperature 98.4 F Pulse Rate [Right Brachial] 85 Pulse Rate [Left Radial] 78 Pulse Rate 76 Respiratory Rate 20 Blood Pressure [Left Arm] 127/65 Blood Pressure [Right Arm] 119/58 O2 Sat by Pulse Oximetry 96 Intake and Output: Intake & Output 08/17/16 08/18/16 08/19/16 08/20/16 11:59 11:59 11:59 11:59 Intake Total 3790 3596 3726 Output Total 900 2400 1300 Balance 2890 1196 2426 - Physical Exam Oriented: Normal, Time, Person, Place Eyes: Normal. negative: Blurred Vision, Diplopia, Discharge, Pain, Redness, Photophobia Ear: Normal. negative: Swelling, Ecchymosis, Hemotypanum, Abrasion, Laceration Nose: Normal. negative: Injected, Discharge, Blood Throat: Normal. negative: Tonsillar Hypertrophy, Red, Exudate Respiratory: Normal Cardiovascular: Irregular (Irreg, Irreg). negative: Murmur, Edema : Normal. negative: Dysuria, Hematuria, Frequency, Discharge, Testicular Pain Auscultation: Bowel Sounds: Normal. negative: Bruit Palpation: Normal. negative: Spleen Enlarged, Liver Enlarged, Mass Pulsatile Tenderness: Normal. negative: Rebound, Guarding, Rigidity Skin: Decreased Turgur. negative: Diaphoresis, Wound, Bruising, Ecchymosis Musculoskeletal: Instability Psychiatric: Normal Mood Description: Calm, Appropriate Affect: Normal Speech Pattern: Clear, Appropriate - Laboratory and Diagnostics Result Diagrams: 08/19/16 08:27 08/19/16 04:45 Labs: Laboratory WBC 7.7 X10^3/uL (3.6-10.0) 08/19/16 08:27 RBC 4.53 X10^6/uL (4.7-6.0) L 08/19/16 08:27 Hgb 12.9 g/dL (13.5-18.0) L 08/19/16 08:27 Hct 39.7 % (42.0-54.0) L 08/19/16 08:27 MCV 87.5 fL (80.0-100.0) 08/19/16 08:27 MCH 28.5 pg (27.0-34.0) 08/19/16 08:27 MCHC 32.6 g/dL (33.0-35.0) L 08/19/16 08:27 RDW 15.1 % (11.6-16.5) 08/19/16 08:27 Plt Count 205 X10^3/uL (150.0-450.0) 08/19/16 08:27 MPV 8.8 fL (7.4-11.0) 08/19/16 08:27 Neut % 70.6 % (42.0-75.0) 08/19/16 08:27 Lymph % 19.2 % (21.0-51.0) L 08/19/16 08:27 [place] % 6.5 % (0.0-13.0) 08/19/16 08:27 Eos % 2.6 % (0.9-2.9) 08/19/16 08:27 Baso % 1.1 % (0.2-1.0) H 08/19/16 08:27 Neut # 5.4 x10^3/uL (2.2-4.8) H 08/19/16 08:27 Lymph # 1.5 X10^3/uL (1.3-2.9) 08/19/16 08:27 [place] # 0.5 x10^3/uL (0.3-0.8) 08/19/16 08:27 Eos # 0.2 x10^3/uL (0.0-0.2) 08/19/16 08:27 Baso # 0.1 X10^3/uL (0.0-0.1) 08/19/16 08:27 Absolute Nucleated RBC 0.0 /100WBC 08/19/16 08:27 INR Target Range - 08/19/16 04:45 INR 2.61 (0.8-1.3) H 08/19/16 04:45 Sodium 137 mmol/L (136-145) 08/19/16 04:45 Corrected Sodium 142 mmol/L (136-145) 08/19/16 04:45 Potassium 4.4 mmol/L (3.5-5.1) 08/19/16 04:45 Chloride 101 mmol/L (98-107) 08/19/16 04:45 Carbon Dioxide 28.0 mmol/L (21-32) 08/19/16 04:45 BUN 16 mg/dL (7-18) 08/19/16 04:45 Creatinine 1.32 mg/dL (0.70-1.30) H 08/19/16 04:45 Est GFR (MDRD) Af Amer > 60 (>60) 08/19/16 04:45 Est GFR (MDRD) Non-Af 58 (>60) L 08/19/16 04:45 Glucose 303 mg/dL (65-99) H 08/19/16 04:45 Hemoglobin A1c 8.2 % (4.5-6.2) H 08/17/16 05:17 Calcium 8.6 mg/dL (8.5-10.1) 08/19/16 04:45 Corrected Calcium 9.4 mg/dL (8.5-10.1) 08/19/16 04:45 Total Bilirubin 0.80 mg/dL (0.2-1.0) 08/19/16 04:45 AST 29 Units/L (15-37) 08/19/16 04:45 ALT 31 Units/L (12-78) 08/19/16 04:45 Alkaline Phosphatase 54 Units/L (46-116) 08/19/16 04:45 Total Protein 6.8 g/dL (6.4-8.2) 08/19/16 04:45 Albumin 3.0 g/dL (3.4-5.0) L 08/19/16 04:45 Globulin 3.8 g/dL (2.5-4.5) 08/19/16 04:45 Albumin/Globulin Ratio 0.8 Ratio (1.1-2.1) L 08/19/16 04:45 Specimen Type Random urine 08/16/16 00:14 Urine Color Jessica (YELLOW) 08/16/16 00:14 Urine Appearance Slightly hazy (CLEAR) 08/16/16 00:14 Urine pH 6.5 (5.0 - 8.0) 08/16/16 00:14 Ur Specific [place] 1.015 (1.000-1.030) 08/16/16 00:14 Urine Protein 1+ (NEGATIVE) 08/16/16 00:14 Urine Glucose (UA) Negative (NEGATIVE) 08/16/16 00:14 Urine Ketones Negative (NEGATIVE) 08/16/16 00:14 Urine Occult Blood Negative (NEGATIVE) 08/16/16 00:14 Urine Nitrite Negative (NEGATIVE) 08/16/16 00:14 Urine Bilirubin Negative (NEGATIVE) 08/16/16 00:14 Urine Urobilinogen 3+ (NORMAL) 08/16/16 00:14 Ur Leukocyte Esterase 2+ (NEGATIVE) 08/16/16 00:14 Urine RBC 0-3 /HPF (NEGATIVE) 08/16/16 00:14 Urine WBC 2-6 /HPF (NEGATIVE) 08/16/16 00:14 Ur Squamous Epith Cells Few /HPF (NEGATIVE) 08/16/16 00:14 Urine Bacteria Negative /HPF (NEGATIVE) 08/16/16 00:14 Urine Sperm Few /HPF (NEGATIVE) 08/16/16 00:14 Ur Culture Indicated? No/not indicated 08/16/16 00:14 Digoxin 1.07 ng/mL (0.9-2) 08/16/16 13:50 Urine Opiates Screen Positive (NEG=<300) 08/16/16 00:14 Urine Methadone Screen Negative (NEG=<300) 08/16/16 00:14 Ur Barbiturates Screen Negative (NEG=<200) 08/16/16 00:14 Ur Phencyclidine Scrn Negative (NEG=<25) 08/16/16 00:14 Ur Amphetamines Screen Negative (NEG=<1000) 08/16/16 00:14 U Benzodiazepines Scrn Positive (NEG=<200) 08/16/16 00:14 Urine Cocaine Screen Negative (NEG=<300) 08/16/16 00:14 U Marijuana (THC) Screen Negative (NEG=<50) 08/16/16 00:14 - Plan (1) Weakness Status: Acute Plan: CONSULT PHYSICAL THERAPY, CONTINUE IV FLUIDS, MONITOR; PLANS ARE TO DISCHARGE TO [facility] WHEN BED IS AVAILABLE. (2) Dehydration Status: Acute Plan: CONTINUE IV FLUIDS, MONITOR LABS. (3) Vascular dementia Status: Acute Qualifiers: Dementia behavioral disturbance: without behavioral disturbance Qualified Code(s): F01.50 - Vascular dementia without behavioral disturbance Plan: CONTINUE TO MONITOR. (4) Atrial fibrillation Status: Chronic Qualifiers: Atrial fibrillation type: chronic Qualified Code(s): I48.2 - Chronic atrial fibrillation (5) Coronary atherosclerosis of [place] coronary artery Status: Chronic Qualifiers: [place] vs. transplanted heart: N Associated angina: A (6) Diabetic neuropathy Status: Chronic Qualifiers: Diabetes mellitus type: D Diabetes mellitus complication detail: D (7) Essential hypertension, benign Status: Chronic (8) Mixed hyperlipidemia Status: Chronic (9) Pain in joint, multiple sites Status: Chronic (10) Type II diabetes mellitus, uncontrolled Status: Chronic Qualifiers: Diabetes mellitus complication status: D Diabetes mellitus complication detail: D Diabetic retinopathy severity: D Proliferative retinopathy type: P Diabetes mellitus macular edema: D Diabetes mellitus ad terminal makeup operator insulin use : D Laterality: L Chronic kidney disease stage: C
[2016-08-19] MEDS: LANOXIN PO SCH (14:53)
[2016-08-19] MEDS: LOPRESSOR TAB 50 MG PO SCH ×2 (14:55→21:32)
[2016-08-19] MEDS: SNACK - Diabetic Appropriate PO SCH (20:10)
[2016-08-19] MEDS: COUMADIN TAB 6 MG PO SCH (21:30)
[2016-08-19] MEDS: FLOMAX PO SCH (21:30)
[2016-08-19] MEDS: KLONOPIN TAB 1 MG PO SCH (21:32)
[2016-08-19] MEDS: FENOFIBRATE PO SCH (21:33)
[2016-08-19] MEDS: INSULIN DEGLUDEC SUBCUT SCH (21:34)
[2016-08-19] MEDS: NORCO 10/325 TAB PO PRN (21:50)
[2016-08-20] MEDS: NS 1000 ML 1,000 ML IV SCH ×3 (03:00→19:45)
[2016-08-20 05:21] LABS: BASOPHILS # (AUTO) 0.1 X10^3/uL (0.0-0.1); BASOPHILS % (AUTO) 1.1 % (0.2-1.0); EOSINOPHILS # (AUTO) 0.2 x10^3/uL (0.0-0.2); EOSINOPHILS % (AUTO) 2.6 % (0.9-2.9); HEMATOCRIT 38.8 % (42.0-54.0); HEMOGLOBIN 12.9 g/dL (13.5-18.0); LYMPHOCYTES # (AUTO) 1.4 X10^3/uL (1.3-2.9); LYMPHOCYTES % (AUTO) 19.5 % (21.0-51.0); MEAN CORPUSCULAR HEMOGLOBIN 28.8 pg (27.0-34.0); MEAN CORPUSCULAR HGB CONC 33.3 g/dL (33.0-35.0); MEAN CORPUSCULAR VOLUME 86.3 fL (80.0-100.0); MEAN PLATELET VOLUME 9.3 fL (7.4-11.0); MONOCYTES # (AUTO) 0.5 x10^3/uL (0.3-0.8); MONOCYTES % (AUTO) 6.8 % (0.0-13.0); NEUTROPHILS # (AUTO) 5.1 x10^3/uL (2.2-4.8); PLATELET COUNT 190 X10^3/uL (150.0-450.0); RED CELL DISTRIBUTION WIDTH 14.6 % (11.6-16.5); WHITE BLOOD COUNT 7.3 X10^3/uL (3.6-10.0)
[2016-08-20] MEDS: REQUIP PO SCH ×3 (05:21→21:34)
[2016-08-20] MEDS: HumuLIN R SC PRN ×4 (05:35→21:54)
[2016-08-20 05:36] LABS: ALANINE AMINOTRANSFERASE 20 Units/L (12-78); ALBUMIN 3.1 g/dL (3.4-5.0); ALKALINE PHOSPHATASE 55 Units/L (46-116); ASPARTATE AMINO TRANSFERASE 26 Units/L (15-37); BLOOD UREA NITROGEN 17 mg/dL (7-18); CALCIUM 8.7 mg/dL (8.5-10.1); CHLORIDE 98 mmol/L (98-107); COR CA(FOR HYPOALB) 9.4 mg/dL (8.5-10.1); COR NA(FOR HYPERGLY) 138 mmol/L (136-145); CREATININE 1.29 mg/dL (0.70-1.30); GLUCOSE 277 mg/dL (65-99); SODIUM 134 mmol/L (136-145); TOTAL PROTEIN 6.9 g/dL (6.4-8.2); eGFR BLACK RACES > 60 (>60); eGFR NON BLACK RACES 60 (>60)
[2016-08-20] MEDS ORDERED: ZOLOFT PO ONE (08:24)
[2016-08-20] MEDS: ZOLOFT PO SCH (08:33)
[2016-08-20] MEDS: LASIX PO SCH (08:33)
[2016-08-20] MEDS: ZAROXOYLN PO SCH (08:33)
[2016-08-20] MEDS: PriLOSEC PO SCH ×2 (08:33→21:35)
[2016-08-20] MEDS: LANOXIN PO SCH (08:33)
[2016-08-20] MEDS: M.S. CONTIN 30 MG EXTENDED RELEASE PO SCH ×2 (08:35→21:35)
[2016-08-20] MEDS: PROSCAR PO SCH (08:35)
[2016-08-20] MEDS: LOPRESSOR TAB 50 MG PO SCH ×2 (08:36→21:35)
[2016-08-20] MEDS: INSULIN DEGLUDEC SUBCUT SCH ×2 (08:37→21:39)
[2016-08-20] MEDS: ADVAIR DISKUS 250/50 IN SCH ×2 (09:21→20:49)
[2016-08-20] MEDS: ARICEPT TAB 5 MG PO SCH (12:37)
[2016-08-20] MEDS: SNACK - Diabetic Appropriate PO SCH (20:25)
[2016-08-20] MEDS: FLOMAX PO SCH (21:35)
[2016-08-20] MEDS: KLONOPIN TAB 1 MG PO SCH (21:35)
[2016-08-20] MEDS: FENOFIBRATE PO SCH (21:40)
[2016-08-21] MEDS: NS 1000 ML 1,000 ML IV SCH ×2 (04:52→16:34)
[2016-08-21 05:23] LABS: BASOPHILS # (AUTO) 0.1 X10^3/uL (0.0-0.1); BASOPHILS % (AUTO) 1.1 % (0.2-1.0); EOSINOPHILS # (AUTO) 0.3 x10^3/uL (0.0-0.2); EOSINOPHILS % (AUTO) 3.2 % (0.9-2.9); HEMATOCRIT 39.6 % (42.0-54.0); HEMOGLOBIN 13.3 g/dL (13.5-18.0); LYMPHOCYTES # (AUTO) 1.6 X10^3/uL (1.3-2.9); LYMPHOCYTES % (AUTO) 19.3 % (21.0-51.0); MEAN CORPUSCULAR HEMOGLOBIN 29.1 pg (27.0-34.0); MEAN CORPUSCULAR HGB CONC 33.7 g/dL (33.0-35.0); MEAN CORPUSCULAR VOLUME 86.2 fL (80.0-100.0); MONOCYTES # (AUTO) 0.6 x10^3/uL (0.3-0.8); MONOCYTES % (AUTO) 7.2 % (0.0-13.0); NEUTROPHILS # (AUTO) 5.7 x10^3/uL (2.2-4.8); NEUTROPHILS % (AUTO) 69.2 % (42.0-75.0); PLATELET COUNT 192 X10^3/uL (150.0-450.0); RED BLOOD COUNT 4.59 X10^6/uL (4.7-6.0); RED CELL DISTRIBUTION WIDTH 14.9 % (11.6-16.5); WHITE BLOOD COUNT 8.2 X10^3/uL (3.6-10.0)
[2016-08-21] MEDS: REQUIP PO SCH ×4 (05:30→22:16)
[2016-08-21 05:51] LABS: ALANINE AMINOTRANSFERASE 18 Units/L (12-78); ALKALINE PHOSPHATASE 54 Units/L (46-116); ASPARTATE AMINO TRANSFERASE 25 Units/L (15-37); BLOOD UREA NITROGEN 24 mg/dL (7-18); CALCIUM 8.7 mg/dL (8.5-10.1); CARBON DIOXIDE 28.6 mmol/L (21-32); CHLORIDE 100 mmol/L (98-107); COR CA(FOR HYPOALB) 9.5 mg/dL (8.5-10.1); COR NA(FOR HYPERGLY) 141 mmol/L (136-145); CREATININE 1.42 mg/dL (0.70-1.30); GLUCOSE 254 mg/dL (65-99); SODIUM 137 mmol/L (136-145); TOTAL PROTEIN 6.7 g/dL (6.4-8.2); eGFR BLACK RACES > 60 (>60); eGFR NON BLACK RACES 54 (>60)
[2016-08-21] MEDS: HumuLIN R SC PRN ×3 (05:51→16:50)
[2016-08-21] MEDS ORDERED: MILK OF MAGNESIA PO PRN (08:23)
[2016-08-21] MEDS ORDERED: COLACE CAP 100 MG PO PRN (08:23)
[2016-08-21] MEDS ORDERED: ZOLOFT PO ONE (08:36)
[2016-08-21] MEDS: LASIX PO SCH (09:00)
[2016-08-21] MEDS: PriLOSEC PO SCH ×2 (09:00→20:36)
[2016-08-21] MEDS: M.S. CONTIN 30 MG EXTENDED RELEASE PO SCH ×2 (09:01→20:34)
[2016-08-21] MEDS: PROSCAR PO SCH (09:01)
[2016-08-21] MEDS: LOPRESSOR TAB 50 MG PO SCH ×2 (09:01→20:35)
[2016-08-21] MEDS: ARICEPT TAB 5 MG PO SCH (09:02)
[2016-08-21] MEDS: ZAROXOYLN PO SCH (09:02)
[2016-08-21] MEDS: ZOLOFT PO SCH (09:03)
[2016-08-21] MEDS: LANOXIN PO SCH (09:03)
[2016-08-21] MEDS: INSULIN DEGLUDEC SUBCUT SCH ×2 (09:08→21:03)
[2016-08-21] MEDS: ADVAIR DISKUS 250/50 IN SCH ×2 (09:56→20:28)
[2016-08-21] MEDS ORDERED: MILK OF MAGNESIA PO ONE (10:37)
[2016-08-21] MEDS ORDERED: COLACE CAP 100 MG PO ONE (10:37)
[2016-08-21] MEDS ORDERED: MIRALAX POWDER (1 DOSE 17GM) PO ONE (10:38)
[2016-08-21] MEDS ORDERED: FLEET ENEMA ADULT PR ONE (10:40)
[2016-08-21] MEDS: ROBITUSSIN DM PO SCH ×4 (11:16→20:33)
--- NOTE | 2016-08-21 17:37 | PCM.PROG ---
Progress Note - Progress Note for Day of Date: 08/20/16 - Subjective Subjective: PATIENT RESTS IN BED, AT BEDSIDE. REPORTS PATIENT CONTINUES WITH PERIODS OF CONFUSION. PATIENT CONTINUES WITH SEVERE GENERALIZED WEAKNESS, PRIMARILY TO LEFT LOWER EXTREMITY, WITH INABILITY TO WALK OR STAND FOR ANY LENGTH OF TIME. PATIENT IS CURRENTLY AWAITING BED AT [facility] FOR SHORT-TERM REHAB. CBC WNL EXCEPT: H/H 12.9/38.8. CMP WNL EXCEPT: BUN/ CREAT 24/1.42, GFR 54, GLUCOSE 254, ALBUMIN 3.0. WE WILL START ARICEPT, CONTINUE PHYSICAL THERAPY, AND MONITOR. WE WILL FOLLOW UP IN AM WITH LABS. WE WILL PLAN FOR DISCHARGE WHEN BED IS AVAILABLE. - Past Medical Family Social History Past Med/Fam/Surg Hx: No changes since H&P Allergies: Allergies Penicillins Allergy (Unknown, Verified 01/21/14 19:24) - Review of Systems ROS: No change since H&P - Vital Signs and I&O's Vital Signs: Temperature 97.7 F Pulse Rate [Right Brachial] 62 Pulse Rate [Left Radial] 55 Pulse Rate 69 Respiratory Rate 20 Blood Pressure [Left Arm] 107/60 Blood Pressure [Right Arm] 117/56 O2 Sat by Pulse Oximetry 94 Intake and Output: Intake & Output 08/19/16 08/20/16 08/21/16 08/22/16 11:59 11:59 11:59 11:59 Intake Total 3726 1960 1660 600 Output Total 1300 825 125 Balance 2426 1135 1535 600 - Physical Exam Oriented: Normal, Time, Person, Place Eyes: Normal. negative: Blurred Vision, Diplopia, Discharge, Pain, Redness, Photophobia Ear: Normal. negative: Swelling, Ecchymosis, Hemotypanum, Abrasion, Laceration Nose: Normal. negative: Injected, Discharge, Blood Throat: Normal. negative: Tonsillar Hypertrophy, Red, Exudate Respiratory: Normal Cardiovascular: Irregular (Irreg, Irreg). negative: Murmur, Edema : Normal. negative: Dysuria, Hematuria, Frequency, Discharge, Testicular Pain Auscultation: Bowel Sounds: Normal. negative: Bruit Palpation: Normal. negative: Spleen Enlarged, Liver Enlarged, Mass Pulsatile Tenderness: Normal. negative: Rebound, Guarding, Rigidity Skin: Decreased Turgur. negative: Diaphoresis, Wound, Bruising, Ecchymosis Musculoskeletal: Instability Psychiatric: Normal Mood Description: Calm, Appropriate Affect: Normal Speech Pattern: Clear, Appropriate - Laboratory and Diagnostics Result Diagrams: 08/21/16 04:45 08/21/16 04:45 Labs: Laboratory WBC 8.2 X10^3/uL (3.6-10.0) 08/21/16 04:45 RBC 4.59 X10^6/uL (4.7-6.0) L 08/21/16 04:45 Hgb 13.3 g/dL (13.5-18.0) L 08/21/16 04:45 Hct 39.6 % (42.0-54.0) L 08/21/16 04:45 MCV 86.2 fL (80.0-100.0) 08/21/16 04:45 MCH 29.1 pg (27.0-34.0) 08/21/16 04:45 MCHC 33.7 g/dL (33.0-35.0) 08/21/16 04:45 RDW 14.9 % (11.6-16.5) 08/21/16 04:45 Plt Count 192 X10^3/uL (150.0-450.0) 08/21/16 04:45 MPV 9.0 fL (7.4-11.0) 08/21/16 04:45 Neut % 69.2 % (42.0-75.0) 08/21/16 04:45 Lymph % 19.3 % (21.0-51.0) L 08/21/16 04:45 [place] % 7.2 % (0.0-13.0) 08/21/16 04:45 Eos % 3.2 % (0.9-2.9) H 08/21/16 04:45 Baso % 1.1 % (0.2-1.0) H 08/21/16 04:45 Neut # 5.7 x10^3/uL (2.2-4.8) H 08/21/16 04:45 Lymph # 1.6 X10^3/uL (1.3-2.9) 08/21/16 04:45 [place] # 0.6 x10^3/uL (0.3-0.8) 08/21/16 04:45 Eos # 0.3 x10^3/uL (0.0-0.2) H 08/21/16 04:45 Baso # 0.1 X10^3/uL (0.0-0.1) 08/21/16 04:45 Absolute Nucleated RBC 0.1 /100WBC 08/21/16 04:45 INR Target Range - 08/21/16 04:45 INR 3.53 (0.8-1.3) H 08/21/16 04:45 Sodium 137 mmol/L (136-145) 08/21/16 04:45 Corrected Sodium 141 mmol/L (136-145) 08/21/16 04:45 Potassium 3.7 mmol/L (3.5-5.1) 08/21/16 04:45 Chloride 100 mmol/L (98-107) 08/21/16 04:45 Carbon Dioxide 28.6 mmol/L (21-32) 08/21/16 04:45 BUN 24 mg/dL (7-18) H 08/21/16 04:45 Creatinine 1.42 mg/dL (0.70-1.30) H 08/21/16 04:45 Est GFR (MDRD) Af Amer > 60 (>60) 08/21/16 04:45 Est GFR (MDRD) Non-Af 54 (>60) L 08/21/16 04:45 Glucose 254 mg/dL (65-99) H 08/21/16 04:45 Hemoglobin A1c 8.2 % (4.5-6.2) H 08/17/16 05:17 Calcium 8.7 mg/dL (8.5-10.1) 08/21/16 04:45 Corrected Calcium 9.5 mg/dL (8.5-10.1) 08/21/16 04:45 Total Bilirubin 0.60 mg/dL (0.2-1.0) 08/21/16 04:45 AST 25 Units/L (15-37) 08/21/16 04:45 ALT 18 Units/L (12-78) 08/21/16 04:45 Alkaline Phosphatase 54 Units/L (46-116) 08/21/16 04:45 Total Protein 6.7 g/dL (6.4-8.2) 08/21/16 04:45 Albumin 3.0 g/dL (3.4-5.0) L 08/21/16 04:45 Globulin 3.7 g/dL (2.5-4.5) 08/21/16 04:45 Albumin/Globulin Ratio 0.8 Ratio (1.1-2.1) L 08/21/16 04:45 Specimen Type Random urine 08/16/16 00:14 Urine Color Jessica (YELLOW) 08/16/16 00:14 Urine Appearance Slightly hazy (CLEAR) 08/16/16 00:14 Urine pH 6.5 (5.0 - 8.0) 08/16/16 00:14 Ur Specific [place] 1.015 (1.000-1.030) 08/16/16 00:14 Urine Protein 1+ (NEGATIVE) 08/16/16 00:14 Urine Glucose (UA) Negative (NEGATIVE) 08/16/16 00:14 Urine Ketones Negative (NEGATIVE) 08/16/16 00:14 Urine Occult Blood Negative (NEGATIVE) 08/16/16 00:14 Urine Nitrite Negative (NEGATIVE) 08/16/16 00:14 Urine Bilirubin Negative (NEGATIVE) 08/16/16 00:14 Urine Urobilinogen 3+ (NORMAL) 08/16/16 00:14 Ur Leukocyte Esterase 2+ (NEGATIVE) 08/16/16 00:14 Urine RBC 0-3 /HPF (NEGATIVE) 08/16/16 00:14 Urine WBC 2-6 /HPF (NEGATIVE) 08/16/16 00:14 Ur Squamous Epith Cells Few /HPF (NEGATIVE) 08/16/16 00:14 Urine Bacteria Negative /HPF (NEGATIVE) 08/16/16 00:14 Urine Sperm Few /HPF (NEGATIVE) 08/16/16 00:14 Ur Culture Indicated? No/not indicated 08/16/16 00:14 Digoxin 1.07 ng/mL (0.9-2) 08/16/16 13:50 Urine Opiates Screen Positive (NEG=<300) 08/16/16 00:14 Urine Methadone Screen Negative (NEG=<300) 08/16/16 00:14 Ur Barbiturates Screen Negative (NEG=<200) 08/16/16 00:14 Ur Phencyclidine Scrn Negative (NEG=<25) 08/16/16 00:14 Ur Amphetamines Screen Negative (NEG=<1000) 08/16/16 00:14 U Benzodiazepines Scrn Positive (NEG=<200) 08/16/16 00:14 Urine Cocaine Screen Negative (NEG=<300) 08/16/16 00:14 U Marijuana (THC) Screen Negative (NEG=<50) 08/16/16 00:14 - Plan (1) Weakness Status: Acute Plan: CONTINUE PHYSICAL THERAPY, CONTINUE IV FLUIDS, MONITOR; PLANS ARE TO DISCHARGE TO [facility] WHEN BED IS AVAILABLE. (2) Dehydration Status: Acute Plan: CONTINUE IV FLUIDS, MONITOR LABS. (3) Vascular dementia Status: Acute Qualifiers: Dementia behavioral disturbance: without behavioral disturbance Qualified Code(s): F01.50 - Vascular dementia without behavioral disturbance Plan: CONTINUE TO MONITOR. (4) Atrial fibrillation Status: Chronic Qualifiers: Atrial fibrillation type: chronic Qualified Code(s): I48.2 - Chronic atrial fibrillation (5) Coronary atherosclerosis of [place] coronary artery Status: Chronic Qualifiers: [place] vs. transplanted heart: N Associated angina: A (6) Diabetic neuropathy Status: Chronic Qualifiers: Diabetes mellitus type: D Diabetes mellitus complication detail: D (7) Essential hypertension, benign Status: Chronic (8) Mixed hyperlipidemia Status: Chronic (9) Pain in joint, multiple sites Status: Chronic (10) Type II diabetes mellitus, uncontrolled Status: Chronic Qualifiers: Diabetes mellitus complication status: D Diabetes mellitus complication detail: D Diabetic retinopathy severity: D Proliferative retinopathy type: P Diabetes mellitus macular edema: D Diabetes mellitus nursing home insulin use : D Laterality: L Chronic kidney disease stage: C
[2016-08-21] MEDS: MILK OF MAGNESIA PO SCH (20:32)
[2016-08-21] MEDS: FLOMAX PO SCH (20:35)
[2016-08-21] MEDS: NORCO 10/325 TAB PO PRN (20:53)
[2016-08-21] MEDS ORDERED: DULCOLAX TAB EC 5 MG PO SCH (21:00)
[2016-08-21] MEDS: SNACK - Diabetic Appropriate PO SCH (21:02)
[2016-08-21] MEDS: KLONOPIN TAB 1 MG PO SCH (21:03)
[2016-08-21] MEDS: FENOFIBRATE PO SCH (21:03)
[2016-08-22 05:21] LABS: BASOPHILS # (AUTO) 0.1 X10^3/uL (0.0-0.1); BASOPHILS % (AUTO) 1.3 % (0.2-1.0); EOSINOPHILS # (AUTO) 0.2 x10^3/uL (0.0-0.2); EOSINOPHILS % (AUTO) 2.7 % (0.9-2.9); HEMATOCRIT 41.6 % (42.0-54.0); HEMOGLOBIN 13.9 g/dL (13.5-18.0); LYMPHOCYTES # (AUTO) 1.7 X10^3/uL (1.3-2.9); LYMPHOCYTES % (AUTO) 22.2 % (21.0-51.0); MEAN CORPUSCULAR HEMOGLOBIN 28.8 pg (27.0-34.0); MEAN CORPUSCULAR HGB CONC 33.3 g/dL (33.0-35.0); MEAN CORPUSCULAR VOLUME 86.5 fL (80.0-100.0); MEAN PLATELET VOLUME 9.2 fL (7.4-11.0); MONOCYTES # (AUTO) 0.5 x10^3/uL (0.3-0.8); MONOCYTES % (AUTO) 6.4 % (0.0-13.0); NEUTROPHILS # (AUTO) 5.2 x10^3/uL (2.2-4.8); NEUTROPHILS % (AUTO) 67.4 % (42.0-75.0); PLATELET COUNT 210 X10^3/uL (150.0-450.0); RED BLOOD COUNT 4.81 X10^6/uL (4.7-6.0); RED CELL DISTRIBUTION WIDTH 15.3 % (11.6-16.5); WHITE BLOOD COUNT 7.8 X10^3/uL (3.6-10.0)
[2016-08-22 05:38] LABS: ALBUMIN 3.2 g/dL (3.4-5.0); CALCIUM 8.8 mg/dL (8.5-10.1); CARBON DIOXIDE 27.9 mmol/L (21-32); COR CA(FOR HYPOALB) 9.4 mg/dL (8.5-10.1); CREATININE 1.67 mg/dL (0.70-1.30); TOTAL PROTEIN 7.1 g/dL (6.4-8.2)
[2016-08-22] MEDS: NS 1000 ML 1,000 ML IV SCH (06:12)
[2016-08-22] MEDS: REQUIP PO SCH ×2 (06:13→14:17)
--- NOTE | 2016-08-22 07:51 | RAD ---
AP abdomen Indication: No bowel movement for 5 days. Concern for impaction. Findings: There is a moderate amount of stool throughout the colon. No large rectal stool ball is ap preciated, however. The bowel gas pattern is nonobstructed. No free air is seen. Previous right femo ral fixation noted. Impression: Moderate colonic stool burden, in keeping with constipation. No convincing evidence for distal impaction. Reported By:
[2016-08-22] MEDS ORDERED: CITROMA PO ONE (09:14)
[2016-08-22] MEDS ORDERED: ZOLOFT PO ONE (09:32)
[2016-08-22] MEDS: M.S. CONTIN 30 MG EXTENDED RELEASE PO SCH (09:42)
[2016-08-22] MEDS: MILK OF MAGNESIA PO SCH (09:42)
[2016-08-22] MEDS: PROSCAR PO SCH (09:43)
[2016-08-22] MEDS: ZOLOFT PO SCH (09:43)
[2016-08-22] MEDS: LASIX PO SCH (09:43)
[2016-08-22] MEDS: LOPRESSOR TAB 50 MG PO SCH (09:45)
[2016-08-22] MEDS: PriLOSEC PO SCH (09:45)
[2016-08-22] MEDS: ZAROXOYLN PO SCH (09:45)
[2016-08-22] MEDS: ROBITUSSIN DM PO SCH ×2 (09:45→12:48)
[2016-08-22] MEDS: INSULIN DEGLUDEC SUBCUT SCH (09:46)
[2016-08-22] MEDS: ARICEPT TAB 5 MG PO SCH (09:47)
[2016-08-22] MEDS: LANOXIN PO SCH (09:47)
[2016-08-22] MEDS ORDERED: COLACE CAP 100 MG PO ONE (13:29)
[2016-08-22] MEDS ORDERED: DULCOLAX SUPPOSITORY 10 MG RECTAL ONE (13:44)
[2016-08-22 13:46] VITALS: BP 104/54
[2016-08-22] MEDS ORDERED: MIRALAX POWDER (1 DOSE 17GM) PO SCH (14:00)
[2016-08-22] MEDS ORDERED: COLACE CAP 100 MG PO SCH (21:00)
== END 2016-08-22 15:50 | DRG 948 ==
LOC: ER 14:43 → ICU 17:03 → MED/SURG 08-16 16:01
PROVIDERS: ADMIT Internal Medicine; ATTEND Internal Medicine
DX: R53.1 Weakness (principal); R53.81 Other malaise; I25.10 Atherosclerotic heart disease of native coronary artery without angina pectoris; E78.2 Mixed hyperlipidemia; I10 Essential (primary) hypertension; R94.31 Abnormal electrocardiogram [ECG] [EKG]; I48.2 Chronic atrial fibrillation; E11.40 Type 2 diabetes mellitus with diabetic neuropathy, unspecified; M25.50 Pain in unspecified joint; E11.65 Type 2 diabetes mellitus with hyperglycemia; E86.0 Dehydration; R26.89 Other abnormalities of gait and mobility; F01.50 Vascular dementia, unspecified severity, without behavioral disturbance, psychotic disturbance, mood disturbance, and anxiety; R25.8 Other abnormal involuntary movements; Z79.1 Long term (current) use of non-steroidal anti-inflammatories (NSAID); Z79.899 Other long term (current) drug therapy; Z79.4 Long term (current) use of insulin; R41.82 Altered mental status, unspecified; G81.91 Hemiplegia, unspecified affecting right dominant side
CPT/HCPCS: 36415; 70450; 70544; 70551; 74000; 80053; 80162; 80307; 81001; 83036; 85025; 85610; 93005; 93010; 94640; 96365; 97535; 99218; 99284; A4222; G8978; G8979; G8985; G8988; S0138; G0378; G0434; J1815

== ENCOUNTER 2016-09-27 10:39 | Observation (INO) | payer OTHER ==
--- NOTE | 2016-09-27 10:47 | DR.GENAD ---
HPI - PCP Primary Care Physician: Sohail - Complaint/Symptoms Chief Complaint Doctors Comments: Patient reports that he was seen by the insurance carrier eligibility services representative who evaluated him on yesterday and was told that he should be in the hospital. Patient had been seen by his pcp the day prior with labs drawn. He was called this am by Dr Acosta office and was informed his digoxin level was elevated and that he needed to stop medicatin ( dig) for one week then restart. Patient denies pain bur reports that he has shortness of breath the past two days - Source History Provided: Patient, Other (spouse) PMH - PMH Past Medical History: Angina, Anxiety, Arthritis, Coronary Artery Disease, Depression, Diabetes, Dyslipidemia, Hypertension, Kidney Stones Past Surgical History: Yes Surgical History: CABG/Valve Surgery, Ortho Surgery - Family History Family Medical History: Diabetes Mellitus, Coronary Artery Disease, Hypertension - Social History Do you use any recreational Drugs:: No ROS - Review of Systems Eyes: No Symptoms Reported ENTM: No Symptoms Reported, Hearing Loss Respiratoy: No Symptoms Reported Cardiovascular: No Symptoms Reported Gastrointestinal/Abdominal: No Symptoms Reported Genitourinary: No Symptoms Reported Neurological: No Symptoms Reported Musculoskeletal: No Symptoms Reported Integumentary: No Symptoms Reported Hematologic/Lymphatic: No Symptoms Reported Endocrine: No Symptoms Reported Psychiatric: No Symptoms Reported All Other Systems: Reviewed and Negative PE - Vital Signs Vitals: Temperature 97.9 F Pulse Rate 70 Respiratory Rate 20 Blood Pressure [Left Arm] 104/54 Blood Pressure [Right Arm] 117/56 Blood Pressure 136/70 O2 Sat by Pulse Oximetry 95 - General Limitations: No Limitations General Appearance: Alert, In No Apparent Distress - Head Head Exam: Normal Inspection, Atraumatic - Eyes Eye exam: Normal Appearance, PERRL, EOMI - ENT ENT Exam: Normal Exam External Ear Exam: Normal External Inspection TM/Canal Exam: Bilateral Normal Nose Exam: Normal Nose Exam Mouth Exam: Normal Inspection Throat Exam: Normal Inspection - Neck Neck Exam: Normal Inspection, Full ROM - Chest Chest Inspection: Normal Inspection - Respiratory Respiratory Exam: Normal Lung Sounds Bilat Respiratory Exam: Bilateral Clear to Auscultation - Cardiovascular Cardiovascular Exam: Regular Rate, Normal Rhythm Course - Reevaluation 1st: Improved ROR - Labs Reviewed Result Diagrams: 09/27/16 11:34 09/27/16 11:34 Laboratory: WBC 7.2 X10^3/uL (3.6-10.0) 09/27/16 11:34 RBC 4.48 X10^6/uL (4.7-6.0) L 09/27/16 11:34 Hgb 13.1 g/dL (13.5-18.0) L 09/27/16 11:34 Hct 38.4 % (42.0-54.0) L 09/27/16 11:34 MCV 85.7 fL (80.0-100.0) 09/27/16 11:34 MCH 29.1 pg (27.0-34.0) 09/27/16 11:34 MCHC 34.0 g/dL (33.0-35.0) 09/27/16 11:34 RDW 15.4 % (11.6-16.5) 09/27/16 11:34 Plt Count 237 X10^3/uL (150.0-450.0) 09/27/16 11:34 MPV 8.4 fL (7.4-11.0) 09/27/16 11:34 Neut % 73.3 % (42.0-75.0) 09/27/16 11:34 Lymph % 16.4 % (21.0-51.0) L 09/27/16 11:34 [place] % 6.9 % (0.0-13.0) 09/27/16 11:34 Eos % 2.4 % (0.9-2.9) 09/27/16 11:34 Baso % 1.0 % (0.2-1.0) 09/27/16 11:34 Neut # 5.3 x10^3/uL (2.2-4.8) H 09/27/16 11:34 Lymph # 1.2 X10^3/uL (1.3-2.9) L 09/27/16 11:34 [place] # 0.5 x10^3/uL (0.3-0.8) 09/27/16 11:34 Eos # 0.2 x10^3/uL (0.0-0.2) 09/27/16 11:34 Baso # 0.1 X10^3/uL (0.0-0.1) 09/27/16 11:34 Absolute Nucleated RBC 0.0 /100WBC 09/27/16 11:34 Sample Site Right radial 09/27/16 13:46 ABG pH 7.440 (7.35-7.45) 09/27/16 13:46 ABG pCO2 47.0 mmHg (35.0-45.0) H 09/27/16 13:46 ABG pO2 84.0 mmHg (80.0-100.0) 09/27/16 13:46 ABG HCO3 31.9 mmol/L (22-26) H* 09/27/16 13:46 ABG O2 Saturation 97.0 % (90-100) 09/27/16 13:46 ABG Base Excess 6.7 mmol/L (-2.0-2.0) H 09/27/16 13:46 Felix Test Pos 09/27/16 13:46 A-a Gradient 57.0 mmHg 09/27/16 13:46 FiO2 28.000 09/27/16 13:46 Blood Gas Comments Alycia well aw 09/27/16 13:46 Sodium 138 mmol/L (136-145) 09/27/16 11:34 Corrected Sodium 140 mmol/L (136-145) 09/27/16 11:34 Potassium 4.4 mmol/L (3.5-5.1) 09/27/16 11:34 Chloride 103 mmol/L (98-107) 09/27/16 11:34 Carbon Dioxide 28.8 mmol/L (21-32) 09/27/16 11:34 BUN 23 mg/dL (7-18) H 09/27/16 11:34 Creatinine 1.32 mg/dL (0.70-1.30) H 09/27/16 11:34 Est GFR (MDRD) Af Amer > 60 (>60) 09/27/16 11:34 Est GFR (MDRD) Non-Af 58 (>60) L 09/27/16 11:34 Glucose 180 mg/dL (65-99) H 09/27/16 11:34 Calcium 8.8 mg/dL (8.5-10.1) 09/27/16 11:34 Corrected Calcium 9.5 mg/dL (8.5-10.1) 09/27/16 11:34 Total Bilirubin 1.10 mg/dL (0.2-1.0) H 09/27/16 11:34 AST 22 Units/L (15-37) 09/27/16 11:34 ALT 22 Units/L (12-78) 09/27/16 11:34 Alkaline Phosphatase 71 Units/L (46-116) 09/27/16 11:34 Creatine Kinase 74 Units/L (39-308) 09/27/16 11:15 CK-MB (CK-2) 2.1 ng/mL (0-4.0) 09/27/16 11:15 CK/CKMB % Calc 2.8 % (<4) 09/27/16 11:15 Troponin I 0.03 ng/mL (0-1.5) 09/27/16 11:15 C-Reactive Protein Cancelled 09/27/16 12:35 Total Protein 7.0 g/dL (6.4-8.2) 09/27/16 11:34 Albumin 3.1 g/dL (3.4-5.0) L 09/27/16 11:34 Globulin 3.9 g/dL (2.5-4.5) 09/27/16 11:34 Albumin/Globulin Ratio 0.8 Ratio (1.1-2.1) L 09/27/16 11:34 - XRAY XRAY Interpreted by: Radiologist (There again changes of thoracotomy with median sternotomy stures. Trachea is midline. There is cardiomegaly with aortic uncoiling and pulmonary vascular congestion. There is dense edema, infiltrate or pleural fluid present in the right lower lobe with obsercuration of the hemidiaphragm and right costophrenic angle regions. There is evidence of prior ORIF the left proximal humerus. No acute osseous changes are seen. Impression: Cardiomegaly with pulmonary vascular congestion. Edema, infiltrate and or pleural fluid present in the right lung base.) - Diagnosis Discharge Problem: Cardiomegaly with Pulmonary Vascular Con, Abnormal pleural fluid - Discharge Plan Condition: Stable - Follow ups/Referrals Follow ups/Referrals: Bird Sauceda [Primary Care Provider] - 3 days - Instructions
[2016-09-27 11:41] LABS: BASOPHILS # (AUTO) 0.1 X10^3/uL (0.0-0.1); EOSINOPHILS # (AUTO) 0.2 x10^3/uL (0.0-0.2); EOSINOPHILS % (AUTO) 2.4 % (0.9-2.9); HEMATOCRIT 38.4 % (42.0-54.0); HEMOGLOBIN 13.1 g/dL (13.5-18.0); LYMPHOCYTES # (AUTO) 1.2 X10^3/uL (1.3-2.9); LYMPHOCYTES % (AUTO) 16.4 % (21.0-51.0); MEAN CORPUSCULAR HEMOGLOBIN 29.1 pg (27.0-34.0); MEAN CORPUSCULAR VOLUME 85.7 fL (80.0-100.0); MEAN PLATELET VOLUME 8.4 fL (7.4-11.0); MONOCYTES # (AUTO) 0.5 x10^3/uL (0.3-0.8); MONOCYTES % (AUTO) 6.9 % (0.0-13.0); NEUTROPHILS # (AUTO) 5.3 x10^3/uL (2.2-4.8); NEUTROPHILS % (AUTO) 73.3 % (42.0-75.0); PLATELET COUNT 237 X10^3/uL (150.0-450.0); RED BLOOD COUNT 4.48 X10^6/uL (4.7-6.0); RED CELL DISTRIBUTION WIDTH 15.4 % (11.6-16.5); WHITE BLOOD COUNT 7.2 X10^3/uL (3.6-10.0)
--- NOTE | 2016-09-27 12:00 | RAD ---
HISTORY: Shortness of breath, low SPO2 Study: Single-view chest, done portably Comparison: June 02, 2014 Findings: There again changes of thoracotomy with median sternotomy sutures. Trachea is midline. There is card iomegaly with aortic uncoiling and pulmonary vascular congestion. The appears clear. There is dense edema, infiltrate or pleural fluid present in the right lower lobe with obscuration of the right hem idiaphragm and right costophrenic angle regions. There is evidence of prior ORIF the left proximal h umerus. No acute osseous changes are seen. IMPRESSION: Cardiomegaly with pulmonary vascular congestion. Edema, infiltrate and or pleural fluid present in the right lung base. Reported By:
[2016-09-27 12:19] LABS: ALANINE AMINOTRANSFERASE 22 Units/L (12-78); ALBUMIN 3.1 g/dL (3.4-5.0); ALKALINE PHOSPHATASE 71 Units/L (46-116); ASPARTATE AMINO TRANSFERASE 22 Units/L (15-37); BLOOD UREA NITROGEN 23 mg/dL (7-18); CALCIUM 8.8 mg/dL (8.5-10.1); CARBON DIOXIDE 28.8 mmol/L (21-32); CHLORIDE 103 mmol/L (98-107); COR CA(FOR HYPOALB) 9.5 mg/dL (8.5-10.1); COR NA(FOR HYPERGLY) 140 mmol/L (136-145); CREATININE 1.32 mg/dL (0.70-1.30); GLUCOSE 180 mg/dL (65-99); SODIUM 138 mmol/L (136-145); eGFR BLACK RACES > 60 (>60); eGFR NON BLACK RACES 58 (>60)
[2016-09-27 13:05] LABS: CKMB % 2.8 % (<4); CREATINE KINASE MB 2.1 ng/mL (0-4.0); TROPONIN I 0.03 ng/mL (0-1.5)
[2016-09-27] MEDS ORDERED: LASIX IVP ONE ×2 (13:14→13:29)
[2016-09-27 14:01] LABS: ABG BASE EXCESS 6.7 mmol/L (-2.0-2.0); ABG HCO3 31.9 mmol/L (22-26)
[2016-09-27 14:02] LABS: ABG ALLEN TEST POS
[2016-09-27] MEDS: NS 1000 ML 1,000 ML IV SCH (16:31)
[2016-09-27 17:34] LABS: BILIRUBIN,URINE NEGATIVE (NEGATIVE); BLOOD/HEMOGLOBIN,URINE 1+ (NEGATIVE); GLUCOSE, URINE NEGATIVE (NEGATIVE); KETONES,URINE NEGATIVE (NEGATIVE); LEUKOCYTE ESTERASE ,URINE 1+ (NEGATIVE); NITRITES,URINE NEGATIVE (NEGATIVE); PROTEIN,URINE NEGATIVE (NEGATIVE); UROBILINOGEN,URINE NORMAL (NORMAL)
[2016-09-27 17:37] LABS: APPEARANCE,URINE CLEAR (CLEAR); COLOR,URINE YELLOW (YELLOW)
[2016-09-27 18:27] LABS: AMORPHOUS SEDIMENT,UR TRACE /HPF (NEGATIVE); BACTERIA,URINE NEGATIVE /HPF (NEGATIVE); RBC,URINE RARE /HPF (NEGATIVE); SQUAMOUS EPITHELIAL CELL,UR RARE /HPF (NEGATIVE)
[2016-09-27] MEDS: LASIX IVP SCH (21:49)
[2016-09-28 06:24] LABS: BASOPHILS # (AUTO) 0.1 X10^3/uL (0.0-0.1); BASOPHILS % (AUTO) 1.1 % (0.2-1.0); EOSINOPHILS # (AUTO) 0.2 x10^3/uL (0.0-0.2); EOSINOPHILS % (AUTO) 2.9 % (0.9-2.9); HEMATOCRIT 38.5 % (42.0-54.0); HEMOGLOBIN 13.2 g/dL (13.5-18.0); LYMPHOCYTES # (AUTO) 1.4 X10^3/uL (1.3-2.9); LYMPHOCYTES % (AUTO) 19.8 % (21.0-51.0); MEAN CORPUSCULAR HEMOGLOBIN 29.4 pg (27.0-34.0); MEAN CORPUSCULAR HGB CONC 34.2 g/dL (33.0-35.0); MEAN CORPUSCULAR VOLUME 86.1 fL (80.0-100.0); MEAN PLATELET VOLUME 9.2 fL (7.4-11.0); MONOCYTES # (AUTO) 0.4 x10^3/uL (0.3-0.8); MONOCYTES % (AUTO) 6.3 % (0.0-13.0); NEUTROPHILS # (AUTO) 4.9 x10^3/uL (2.2-4.8); NEUTROPHILS % (AUTO) 69.9 % (42.0-75.0); PLATELET COUNT 226 X10^3/uL (150.0-450.0); RED BLOOD COUNT 4.47 X10^6/uL (4.7-6.0); RED CELL DISTRIBUTION WIDTH 15.5 % (11.6-16.5); WHITE BLOOD COUNT 7.1 X10^3/uL (3.6-10.0)
[2016-09-28 06:26] LABS: ALANINE AMINOTRANSFERASE 23 Units/L (12-78); ALKALINE PHOSPHATASE 74 Units/L (46-116); ASPARTATE AMINO TRANSFERASE 23 Units/L (15-37); BLOOD UREA NITROGEN 23 mg/dL (7-18); CALCIUM 8.7 mg/dL (8.5-10.1); CARBON DIOXIDE 27.5 mmol/L (21-32); CHLORIDE 101 mmol/L (98-107); COR CA(FOR HYPOALB) 9.5 mg/dL (8.5-10.1); COR NA(FOR HYPERGLY) 142 mmol/L (136-145); CREATININE 1.31 mg/dL (0.70-1.30); GLUCOSE 207 mg/dL (65-99); SODIUM 139 mmol/L (136-145); TOTAL PROTEIN 6.8 g/dL (6.4-8.2); eGFR BLACK RACES > 60 (>60); eGFR NON BLACK RACES 59 (>60)
[2016-09-28] MEDS: LASIX IVP SCH ×2 (09:12→20:30)
[2016-09-28 10:26] VITALS: BMI 43.5
[2016-09-28] MEDS ORDERED: HYDROXYZINE HCL 50 MG PO PRN (12:37)
[2016-09-28] MEDS ORDERED: ROPINIROLE HYDROCHLORIDE 4 MG PO SCH (14:00)
[2016-09-28] MEDS ORDERED: ZOLOFT PO ONE (15:13)
[2016-09-28] MEDS: ZAROXOYLN PO SCH (15:45)
[2016-09-28] MEDS: ATARAX TAB 25 MG PO SCH ×2 (15:45→22:08)
[2016-09-28] MEDS: LOPRESSOR TAB 50 MG PO SCH ×2 (15:46→20:28)
[2016-09-28] MEDS: REQUIP PO SCH ×2 (15:46→22:09)
[2016-09-28] MEDS: MICRO K EXTEN CAP 10 MEQ PO SCH ×3 (15:46→20:28)
[2016-09-28] MEDS: PriLOSEC PO SCH ×2 (15:47→20:30)
[2016-09-28] MEDS: M.S. CONTIN 30 MG EXTENDED RELEASE PO SCH ×2 (15:47→20:29)
[2016-09-28] MEDS: COLACE CAP 100 MG PO SCH ×2 (15:47→20:30)
[2016-09-28] MEDS: ZOLOFT PO SCH (15:47)
[2016-09-28] MEDS: ARICEPT TAB 5 MG PO SCH (15:47)
--- NOTE | 2016-09-28 16:02 | RAD ---
History: Chest pain and dyspnea. Exam: Single-view chest. Comparison: September 27, 2016. Findings: The trachea is midline. The cardiac silhouette is enlarged status post median sternotomy with unchan ged central vascular congestion and interstitial densities seen throughout the lung iyer. There is unchanged right basilar pleural parenchymal disease. This could reflect an infiltrate or edema/effu tawny. No other changes seen. Bones are stable. The Impression: The trachea is midline. The cardiac silhouette is enlarged status post median sternotomy with unchan ged central vascular congestion and interstitial densities seen throughout the lung iyer. There is unchanged right basilar pleural parenchymal disease. This could reflect an infiltrate or edema/effu tawny. No other changes seen. Bones are stable. The Reported By:
[2016-09-28] MEDS: TRICOR TAB 145 MG PO SCH (20:28)
[2016-09-28] MEDS: KLONOPIN TAB 1 MG PO SCH (20:30)
[2016-09-28] MEDS: FLOMAX PO SCH (20:30)
[2016-09-28] MEDS: COUMADIN TAB 4 MG PO SCH (20:31)
[2016-09-28] MEDS: INSULIN DEGLUDEC 64 UNIT SUBCUT SCH (20:33)
[2016-09-28] MEDS ORDERED: FENOFIBRATE MICRONIZED 130 MG PO SCH (21:00)
[2016-09-28] MEDS: NS 1000 ML 1,000 ML IV SCH ×2 (22:07→22:09)
[2016-09-28] MEDS: NORCO 10/325 TAB PO PRN (23:59)
[2016-09-29] MEDS: ATARAX TAB 25 MG PO SCH ×3 (05:22→21:05)
[2016-09-29] MEDS: REQUIP PO SCH ×3 (05:22→21:05)
[2016-09-29] MEDS ORDERED: ZOLOFT PO ONE (08:49)
[2016-09-29] MEDS: PriLOSEC PO SCH ×2 (09:16→20:39)
[2016-09-29] MEDS: ZAROXOYLN PO SCH (09:17)
[2016-09-29] MEDS: ARICEPT TAB 5 MG PO SCH (09:17)
[2016-09-29] MEDS: ZOLOFT PO SCH (09:17)
[2016-09-29] MEDS: MICRO K EXTEN CAP 10 MEQ PO SCH ×4 (09:17→20:39)
[2016-09-29] MEDS: M.S. CONTIN 30 MG EXTENDED RELEASE PO SCH ×2 (09:17→20:41)
[2016-09-29] MEDS: COLACE CAP 100 MG PO SCH ×2 (09:17→20:40)
[2016-09-29] MEDS: LASIX IVP SCH ×2 (09:17→15:16)
[2016-09-29] MEDS: LOPRESSOR TAB 50 MG PO SCH ×2 (09:17→20:42)
[2016-09-29] MEDS ORDERED: LANOXIN PO SCH (14:00)
[2016-09-29] MEDS: ALBUMIN HUMAN 25%- 100ML 100 ML IV SCH (15:16)
--- NOTE | 2016-09-29 19:51 | RAD ---
HISTORY: CHF Study: Portable chest Comparison: 09/28/2016 Findings: The heart is moderately enlarged and more prominent. The pulmonary vessels are less prominent centra lly . There is hazy opacity along the lung bases which has decreased . There is mild blunting of the right costophrenic angle which is less prominent. Postop changes are seen along the mediastinum and sternum. IMPRESSION: Questionable slight increase in the heart size which may be due to a developing pericardial effusion . Suggest echocardiography followup. Resolving pulmonary edema and slowly resolving bibasilar opacities with a small right pleural effusi on which is less prominent.. Reported By:
[2016-09-29] MEDS: TRICOR TAB 145 MG PO SCH (20:38)
[2016-09-29] MEDS: KLONOPIN TAB 1 MG PO SCH (20:40)
[2016-09-29] MEDS: FLOMAX PO SCH (20:40)
[2016-09-29] MEDS: COUMADIN TAB 4 MG PO SCH (20:40)
[2016-09-29] MEDS: INSULIN DEGLUDEC 64 UNIT SUBCUT SCH (20:44)
[2016-09-29] MEDS: OTBS NS XX SCH (20:45)
[2016-09-29] MEDS: NORCO 10/325 TAB PO PRN (21:04)
[2016-09-29] MEDS: NS 1000 ML 1,000 ML IV SCH (22:25)
[2016-09-30] MEDS: ATARAX TAB 25 MG PO SCH ×3 (05:29→22:01)
[2016-09-30] MEDS: REQUIP PO SCH ×3 (05:29→22:01)
[2016-09-30] MEDS: NS 1000 ML 1,000 ML IV SCH ×3 (05:31→22:15)
[2016-09-30 06:13] LABS: ALBUMIN 3.5 g/dL (3.4-5.0); ALKALINE PHOSPHATASE 71 Units/L (46-116); ASPARTATE AMINO TRANSFERASE 23 Units/L (15-37); BLOOD UREA NITROGEN 31 mg/dL (7-18); CALCIUM 8.6 mg/dL (8.5-10.1); CARBON DIOXIDE 32.2 mmol/L (21-32); CHLORIDE 100 mmol/L (98-107); COR NA(FOR HYPERGLY) 140 mmol/L (136-145); CREATININE 1.67 mg/dL (0.70-1.30); GLUCOSE 158 mg/dL (65-99); SODIUM 139 mmol/L (136-145); TOTAL PROTEIN 7.4 g/dL (6.4-8.2); eGFR BLACK RACES 54 (>60); eGFR NON BLACK RACES 44 (>60)
[2016-09-30 06:17] LABS: BASOPHILS # (AUTO) 0.1 X10^3/uL (0.0-0.1); BASOPHILS % (AUTO) 0.8 % (0.2-1.0); EOSINOPHILS # (AUTO) 0.2 x10^3/uL (0.0-0.2); EOSINOPHILS % (AUTO) 2.5 % (0.9-2.9); HEMATOCRIT 39.6 % (42.0-54.0); HEMOGLOBIN 13.4 g/dL (13.5-18.0); LYMPHOCYTES # (AUTO) 1.4 X10^3/uL (1.3-2.9); LYMPHOCYTES % (AUTO) 18.2 % (21.0-51.0); MEAN CORPUSCULAR HEMOGLOBIN 29.5 pg (27.0-34.0); MEAN CORPUSCULAR HGB CONC 33.7 g/dL (33.0-35.0); MEAN CORPUSCULAR VOLUME 87.7 fL (80.0-100.0); MEAN PLATELET VOLUME 8.8 fL (7.4-11.0); MONOCYTES # (AUTO) 0.5 x10^3/uL (0.3-0.8); NEUTROPHILS # (AUTO) 5.7 x10^3/uL (2.2-4.8); NEUTROPHILS % (AUTO) 72.5 % (42.0-75.0); PLATELET COUNT 267 X10^3/uL (150.0-450.0); RED BLOOD COUNT 4.52 X10^6/uL (4.7-6.0); RED CELL DISTRIBUTION WIDTH 15.6 % (11.6-16.5); WHITE BLOOD COUNT 7.8 X10^3/uL (3.6-10.0)
[2016-09-30 06:26] LABS: ALANINE AMINOTRANSFERASE 23 Units/L (12-78)
--- NOTE | 2016-09-30 07:12 | RAD ---
HISTORY: Congestive heart failure Study: Chest one view Comparison: September 29, 2016 Findings: Patient is status post median sternotomy. The heart remains enlarged. Mild pulmonary venous congesti on is present. No interstitial edema, alveolar edema, alveolar infiltrates, or pleural effusions are identified. The bony thorax is unremarkable. IMPRESSION: Cardiomegaly with mild pulmonary venous congestion Reported By:
[2016-09-30] MEDS ORDERED: ZOLOFT PO ONE (09:20)
[2016-09-30] MEDS: PriLOSEC PO SCH ×2 (09:29→20:45)
[2016-09-30] MEDS: ZOLOFT PO SCH (09:30)
[2016-09-30] MEDS: LOPRESSOR TAB 50 MG PO SCH ×2 (09:30→20:45)
[2016-09-30] MEDS: COLACE CAP 100 MG PO SCH ×2 (09:30→20:42)
[2016-09-30] MEDS: ZAROXOYLN PO SCH (09:30)
[2016-09-30] MEDS: MICRO K EXTEN CAP 10 MEQ PO SCH ×4 (09:30→20:47)
[2016-09-30] MEDS: M.S. CONTIN 30 MG EXTENDED RELEASE PO SCH ×2 (09:30→20:47)
[2016-09-30] MEDS: ARICEPT TAB 5 MG PO SCH (09:35)
[2016-09-30] MEDS: ALBUMIN HUMAN 25%- 100ML 100 ML IV SCH (09:38)
[2016-09-30] MEDS: OTBS NS XX SCH ×2 (09:46→21:38)
[2016-09-30] MEDS: LASIX IVP SCH (12:21)
[2016-09-30] MEDS: NORCO 10/325 TAB PO PRN (13:40)
--- NOTE | 2016-09-30 15:25 | DR.H&P ---
H&P - History & Physical for Day of: H&P Date: 09/27/16 - Chief Complaint Chief Complaint: Shortness of breath - Allergies Allergies/Adverse Reactions: Allergies Allergy/AdvReac Type Severity Reaction Status Date / Time Penicillins Allergy Unknown Verified 01/21/14 19:24 - History of Present Illness History of Present Illness: 09/27/16. Patient is a 65yo white male who presented to the ER with complaints of shortness of breath. He was seen by his insurance assistant who told him he needed to go to the hospital. Labs on arrival were normal with the exception of RBC 4.48, Hgb 13.1m, Hct 38.4, Lymph%16.4, Neut# 5.3, Lymph# 1.2, BUN 23, Creatinine 1.32, Est GFR 58, glucose 180, Total Bilirubin 1.10, Albumin 3.1, Albumin/Globulin Ratio 0.8. ABG HCO3 31.9 and pCO2 47.7. Chest Xray shows Cardiomegaly with pulmonary vascular congestion, edema, infiltrate and or pleural fluid present in the right lung base. Patient admitted with cardiomegaly, pulmonary vascular congestion and pleural fluid in the right lung base. Patient was started on Lasix 20mg IV BID and given a one time dose of 40mg IV. - Past Medical History Past Medical History: Angina, Anxiety, Arthritis, Coronary Artery Disease, Depression, Diabetes, Dyslipidemia, Hypertension, Kidney Stones Additional Medical History: Atrial fibrillation, Valvular Hear Disease, Pneumonia, Muscle Weakness, Back Pain - Past Surgical History Surgical History: CABG/Valve Surgery, Ortho Surgery Additional Surgical History: Femur Surgery, Ankle Surgery, Left Shoulder Replacment, Metal Heart Valve - Family History Family Medical History: Diabetes Mellitus, Coronary Artery Disease, Hypertension - Social History Does patient currently use any type of tobacco product: No Have you used tobacco products in the last 12 months: No Type of Tobacco Use: None Does any household member use tobacco: No Alcohol Use: None Drug Use: None - Medications Home Medications: Current Medications Acetaminophen/Hydrocodone Bitart ([place] 10/325 Tab) 1 tab PO QID PRN PRN Reason: PAIN Last Admin: 09/30/16 13:40 Dose: 1 tab Clonazepam (Klonopin Tab 1 Mg) 1 mg PO HS [facility] Last Admin: 09/29/16 20:40 Dose: 1 mg Docusate Sodium (Colace Cap 100 Mg) 100 mg PO BID [facility] Last Admin: 09/30/16 09:30 Dose: 100 mg Donepezil HCl (Aricept Tab 5 Mg) 5 mg PO DAILY REPLACED BY [facility] Last Admin: 09/30/16 09:35 Dose: 5 mg Fenofibrate (Tricor Tab 145 Mg) 145 mg PO [facility] Last Admin: 09/29/16 20:38 Dose: 145 mg Home Med (Insulin Degludec [Tresiba Flextouch]) 64 units SUBCUT [facility] Last Admin: 09/29/16 20:44 Dose: 64 units Hydroxyzine HCl (Atarax Tab 25 Mg) 50 mg PO TID REPLACED BY [facility] Last Admin: 09/30/16 13:34 Dose: 50 mg Metolazone (Zaroxoyln) 5 mg PO DAILY REPLACED BY [facility] Last Admin: 09/30/16 09:30 Dose: 5 mg Metoprolol Tartrate (Lopressor Tab 50 Mg) 100 mg PO BID REPLACED BY [facility] Last Admin: 09/30/16 09:30 Dose: 100 mg Miscellaneous (Otbs Ns) 1 ea XX BID REPLACED BY [facility] Last Admin: 09/30/16 09:46 Dose: 1 ea Morphine Sulfate (M.S. Contin 30 Mg Extended Release) 30 mg PO BID REPLACED BY [facility] Last Admin: 09/30/16 09:30 Dose: 30 mg Omeprazole (Prilosec) 40 mg PO BID REPLACED BY [facility] Last Admin: 09/30/16 09:29 Dose: 40 mg Potassium Chloride (Micro K Exten Cap 10 Meq) 10 meq PO QID REPLACED BY [facility] Last Admin: 09/30/16 13:34 Dose: 10 meq Ropinirole HCl (Requip) 4 mg PO TID REPLACED BY [facility] Last Admin: 09/30/16 13:33 Dose: 4 mg Sertraline HCl (Zoloft) 100 mg PO DAILY REPLACED BY [facility] Last Admin: 09/30/16 09:30 Dose: 100 mg Tamsulosin HCl (Flomax) 0.4 mg PO [facility] Last Admin: 09/29/16 20:40 Dose: 0.4 mg Warfarin Sodium (Coumadin Tab 4 Mg) 4 mg PO [facility] Last Admin: 09/29/16 20:40 Dose: 4 mg - Review of Systems Constitutional: No Symptoms Reported Eyes: No Symptoms Reported ENT: No Symptoms Reported Respiratory: Shortness of Breath Cardiovascular: No Symptoms Reported Gastrointestinal: No Symptoms Reported Genitourinary: No Symptoms Reported Musculoskeletal: No Symptoms Reported Skin: No Symptoms Reported Neurological: Weakness - Physical Exam Vital Signs: Vtial signs 97.9, 70, 20 95% NC, 136/70. Oriented: Normal Eyes: Normal Ear: Normal Nose: Normal Throat: Normal Respiratory: Rales Throughout Cardiovascular: Normal : Normal Auscultation: Bowel Sounds: Normal Palpation: Normal Tenderness: Normal Skin: Normal Musculoskeletal: Normal Psychiatric: Normal Mood Description: Calm, Appropriate Affect: Normal Speech Pattern: Clear, Appropriate - Assessment/Plan (1) Pulmonary vascular congestion Status: Acute Plan: Lasix IV, continue to monitor (2) Cardiomegaly Status: Acute (3) Atrial fibrillation Qualifiers: Atrial fibrillation type: chronic Qualified Code(s): I48.2 - Chronic atrial fibrillation Status: Chronic (4) Coronary atherosclerosis of [place] coronary artery Qualifiers: [place] vs. transplanted heart: N Associated angina: A Status: Chronic (5) Diabetic neuropathy Qualifiers: Diabetes mellitus type: D Diabetes mellitus complication detail: D Status: Chronic (6) Essential hypertension, benign Status: Chronic (7) Mixed hyperlipidemia Status: Chronic (8) Type II diabetes mellitus, uncontrolled Qualifiers: Diabetes mellitus complication status: D Diabetes mellitus complication detail: D Diabetic retinopathy severity: D Proliferative retinopathy type: P Diabetes mellitus macular edema: D Diabetes mellitus medical terminologist insulin use : D Laterality: L Chronic kidney disease stage: C Status: Chronic
--- NOTE | 2016-09-30 15:31 | PCM.PROG ---
Progress Note - Progress Note for Day of Date: 09/30/16 - Subjective Subjective: Patient is 65yo old male who presented to the ER with complaints of shortness of breath and was admitted with cardiomegaly, pulmonary vascular congestion and pleural fluid in the right lung base. Patient states he is feeling somewhat better this am but he is still having shortness of breath. We are going to perform a walk test for at home oxygen as well as overnight pulse ox as the patient has a history of sleep apnea. We are also going to consult physical therapy and make sure they are working with him. We will follow up in the AM with repeat labs and chest XRA. Chest Xray this am shows cardiomegaly with mild pulmonary venous congestion. Labs within normal limits with the exception RBC 4.52. HGb 13.4, Hct 39.6, Lymph% 18.2, Neut# 5.7, Carbon Dioxide 32.2, BUN 31, Creatinine 1.67, Est GFR 44, glucose 158, Albumin/Globulin Ratio 0.9. Vital Signs 97.6, 65, 20, 90% on NC, 113/61 - Past Medical Family Social History Past Med/Fam/Surg Hx: No changes since H&P Allergies: Allergies Penicillins Allergy (Unknown, Verified 01/21/14 19:24) - Review of Systems ROS: No change since H&P - Vital Signs and I&O's Vital Signs: Temperature 97.9 F Pulse Rate [Left Brachial] 65 Pulse Rate [Right Radial] 64 Pulse Rate 65 Respiratory Rate 20 Blood Pressure [Left Arm] 127/60 Blood Pressure [Right Arm] 117/66 O2 Sat by Pulse Oximetry 96 Intake and Output: Intake & Output 09/28/16 09/29/16 09/30/16 10/01/16 11:59 11:59 11:59 11:59 Intake Total 3072 2140 4135 1560 Output Total 2670 1700 3850 650 Balance 402 440 285 910 - Physical Exam Oriented: Normal Eyes: Normal Ear: Normal Nose: Normal Throat: Normal Respiratory: Rales Cardiovascular: Normal : Normal Auscultation: Bowel Sounds: Normal Tenderness: Normal Skin: Normal Musculoskeletal: Normal Psychiatric: Normal Mood Description: Calm, Appropriate Affect: Normal Speech Pattern: Clear, Appropriate - Laboratory and Diagnostics Result Diagrams: 09/30/16 03:36 09/30/16 03:36 Labs: Laboratory WBC 7.8 X10^3/uL (3.6-10.0) 09/30/16 03:36 RBC 4.52 X10^6/uL (4.7-6.0) L 09/30/16 03:36 Hgb 13.4 g/dL (13.5-18.0) L 09/30/16 03:36 Hct 39.6 % (42.0-54.0) L 09/30/16 03:36 MCV 87.7 fL (80.0-100.0) 09/30/16 03:36 MCH 29.5 pg (27.0-34.0) 09/30/16 03:36 MCHC 33.7 g/dL (33.0-35.0) 09/30/16 03:36 RDW 15.6 % (11.6-16.5) 09/30/16 03:36 Plt Count 267 X10^3/uL (150.0-450.0) 09/30/16 03:36 MPV 8.8 fL (7.4-11.0) 09/30/16 03:36 Neut % 72.5 % (42.0-75.0) 09/30/16 03:36 Lymph % 18.2 % (21.0-51.0) L 09/30/16 03:36 [place] % 6.0 % (0.0-13.0) 09/30/16 03:36 Eos % 2.5 % (0.9-2.9) 09/30/16 03:36 Baso % 0.8 % (0.2-1.0) 09/30/16 03:36 Neut # 5.7 x10^3/uL (2.2-4.8) H 09/30/16 03:36 Lymph # 1.4 X10^3/uL (1.3-2.9) 09/30/16 03:36 [place] # 0.5 x10^3/uL (0.3-0.8) 09/30/16 03:36 Eos # 0.2 x10^3/uL (0.0-0.2) 09/30/16 03:36 Baso # 0.1 X10^3/uL (0.0-0.1) 09/30/16 03:36 Absolute Nucleated RBC 0.1 /100WBC 09/30/16 03:36 INR Target Range - 09/29/16 04:42 INR 2.04 (0.8-1.3) H 09/29/16 04:42 Sample Site Right radial 09/27/16 13:46 ABG pH 7.440 (7.35-7.45) 09/27/16 13:46 ABG pCO2 47.0 mmHg (35.0-45.0) H 09/27/16 13:46 ABG pO2 84.0 mmHg (80.0-100.0) 09/27/16 13:46 ABG HCO3 31.9 mmol/L (22-26) H* 09/27/16 13:46 ABG O2 Saturation 97.0 % (90-100) 09/27/16 13:46 ABG Base Excess 6.7 mmol/L (-2.0-2.0) H 09/27/16 13:46 Felix Test Pos 09/27/16 13:46 A-a Gradient 57.0 mmHg 09/27/16 13:46 FiO2 28.000 09/27/16 13:46 Blood Gas Comments Alycia well aw 09/27/16 13:46 Sodium 139 mmol/L (136-145) 09/30/16 03:36 Corrected Sodium 140 mmol/L (136-145) 09/30/16 03:36 Potassium 4.1 mmol/L (3.5-5.1) 09/30/16 03:36 Chloride 100 mmol/L (98-107) 09/30/16 03:36 Carbon Dioxide 32.2 mmol/L (21-32) H 09/30/16 03:36 BUN 31 mg/dL (7-18) H 09/30/16 03:36 Creatinine 1.67 mg/dL (0.70-1.30) H 09/30/16 03:36 Est GFR (MDRD) Af Amer 54 (>60) L 09/30/16 03:36 Est GFR (MDRD) Non-Af 44 (>60) L 09/30/16 03:36 Glucose 158 mg/dL (65-99) H 09/30/16 03:36 Calcium 8.6 mg/dL (8.5-10.1) 09/30/16 03:36 Corrected Calcium TNP 09/30/16 03:36 Total Bilirubin 0.70 mg/dL (0.2-1.0) 09/30/16 03:36 AST 23 Units/L (15-37) 09/30/16 03:36 ALT 23 Units/L (12-78) 09/30/16 03:36 Alkaline Phosphatase 71 Units/L (46-116) 09/30/16 03:36 Creatine Kinase 74 Units/L (39-308) 09/27/16 11:15 CK-MB (CK-2) 2.1 ng/mL (0-4.0) 09/27/16 11:15 CK/CKMB % Calc 2.8 % (<4) 09/27/16 11:15 Troponin I 0.03 ng/mL (0-1.5) 09/27/16 11:15 C-Reactive Protein Cancelled 09/27/16 12:35 Total Protein 7.4 g/dL (6.4-8.2) 09/30/16 03:36 Albumin 3.5 g/dL (3.4-5.0) 09/30/16 03:36 Globulin 3.9 g/dL (2.5-4.5) 09/30/16 03:36 Albumin/Globulin Ratio 0.9 Ratio (1.1-2.1) L 09/30/16 03:36 Specimen Type Clean catch urine 09/27/16 16:01 Urine Color Yellow (YELLOW) 09/27/16 16:01 Urine Appearance Clear (CLEAR) 09/27/16 16:01 Urine pH 7.0 (5.0 - 8.0) 09/27/16 16:01 Ur Specific [place] 1.005 (1.000-1.030) 09/27/16 16:01 Urine Protein Negative (NEGATIVE) 09/27/16 16:01 Urine Glucose (UA) Negative (NEGATIVE) 09/27/16 16:01 Urine Ketones Negative (NEGATIVE) 09/27/16 16:01 Urine Occult Blood 1+ (NEGATIVE) 09/27/16 16:01 Urine Nitrite Negative (NEGATIVE) 09/27/16 16:01 Urine Bilirubin Negative (NEGATIVE) 09/27/16 16:01 Urine Urobilinogen Normal (NORMAL) 09/27/16 16:01 Ur Leukocyte Esterase 1+ (NEGATIVE) 09/27/16 16:01 Urine RBC Rare /HPF (NEGATIVE) 09/27/16 16:01 Urine WBC Rare /HPF (NEGATIVE) 09/27/16 16:01 Ur Squamous Epith Cells Rare /HPF (NEGATIVE) 09/27/16 16:01 Amorphous Sediment Trace /HPF (NEGATIVE) 09/27/16 16:01 Urine Bacteria Negative /HPF (NEGATIVE) 09/27/16 16:01 Ur Culture Indicated? No/not indicated 09/27/16 16:01 Digoxin 0.93 ng/mL (0.9-2) 09/28/16 04:25 - Plan (1) Pulmonary vascular congestion Status: Acute Plan: Arrange for oxygen at home, overnight pulse ox, Albumin IV, continue to monitor (2) Cardiomegaly Status: Acute (3) Atrial fibrillation Status: Chronic Qualifiers: Atrial fibrillation type: chronic Qualified Code(s): I48.2 - Chronic atrial fibrillation Plan: continue coumadin (4) Coronary atherosclerosis of [place] coronary artery Status: Chronic Qualifiers: [place] vs. transplanted heart: N Associated angina: A (5) Diabetic neuropathy Status: Chronic Qualifiers: Diabetes mellitus type: D Diabetes mellitus complication detail: D (6) Essential hypertension, benign Status: Chronic Plan: continue lopressor and monitor (7) Mixed hyperlipidemia Status: Chronic Plan: continue fenofibrate (8) Type II diabetes mellitus, uncontrolled Status: Chronic Qualifiers: Diabetes mellitus complication status: D Diabetes mellitus complication detail: D Diabetic retinopathy severity: D Proliferative retinopathy type: P Diabetes mellitus macular edema: D Diabetes mellitus oyst[place] insulin use : D Laterality: L Chronic kidney disease stage: C Plan: continue home medication Insulin Tresiba
[2016-09-30] MEDS: COUMADIN TAB 4 MG PO SCH (20:42)
[2016-09-30] MEDS: SNACK - Diabetic Appropriate PO SCH (20:42)
[2016-09-30] MEDS: TRICOR TAB 145 MG PO SCH (20:46)
[2016-09-30] MEDS: FLOMAX PO SCH (20:46)
[2016-09-30] MEDS: KLONOPIN TAB 1 MG PO SCH (20:47)
[2016-09-30] MEDS: INSULIN DEGLUDEC 64 UNIT SUBCUT SCH (21:36)
[2016-10-01] MEDS: REQUIP PO SCH ×3 (05:41→21:39)
[2016-10-01] MEDS: ATARAX TAB 25 MG PO SCH ×3 (05:41→21:39)
--- NOTE | 2016-10-01 05:58 | RAD ---
HISTORY: Follow up congestive heart failure Study: Chest one view Comparison: September 30, 2016 Findings: The patient is status post median sternotomy. The heart is enlarged. No definite congestive heart fa ilure is present on today's examination. No acute alveolar infiltrates or pleural effusions are pres ent. There is minimal subsegmental atelectasis in the right lung base. The bony thorax is unremarkab le. IMPRESSION: Cardiomegaly without congestive heart failure No infiltrates Reported By:
[2016-10-01 06:00] LABS: BASOPHILS # (AUTO) 0.1 X10^3/uL (0.0-0.1); BASOPHILS % (AUTO) 0.9 % (0.2-1.0); EOSINOPHILS # (AUTO) 0.2 x10^3/uL (0.0-0.2); EOSINOPHILS % (AUTO) 3.2 % (0.9-2.9); HEMATOCRIT 36.2 % (42.0-54.0); HEMOGLOBIN 12.2 g/dL (13.5-18.0); LYMPHOCYTES # (AUTO) 1.5 X10^3/uL (1.3-2.9); LYMPHOCYTES % (AUTO) 20.2 % (21.0-51.0); MEAN CORPUSCULAR HEMOGLOBIN 29.2 pg (27.0-34.0); MEAN CORPUSCULAR HGB CONC 33.7 g/dL (33.0-35.0); MEAN CORPUSCULAR VOLUME 86.7 fL (80.0-100.0); MONOCYTES # (AUTO) 0.5 x10^3/uL (0.3-0.8); MONOCYTES % (AUTO) 6.6 % (0.0-13.0); NEUTROPHILS % (AUTO) 69.1 % (42.0-75.0); PLATELET COUNT 225 X10^3/uL (150.0-450.0); RED BLOOD COUNT 4.18 X10^6/uL (4.7-6.0); RED CELL DISTRIBUTION WIDTH 15.4 % (11.6-16.5); WHITE BLOOD COUNT 7.2 X10^3/uL (3.6-10.0)
[2016-10-01 06:23] LABS: ERYTHROCYTE SEDIMENTATION RATE 15 MM/HOUR (0-15)
[2016-10-01 06:30] LABS: ALBUMIN 3.3 g/dL (3.4-5.0); C-REACTIVE PROTEIN 45.5 mg/L (0-3.0); CALCIUM 8.2 mg/dL (8.5-10.1); CARBON DIOXIDE 29.8 mmol/L (21-32); COR CA(FOR HYPOALB) 8.8 mg/dL (8.5-10.1); CREATININE 1.76 mg/dL (0.70-1.30); TOTAL PROTEIN 6.8 g/dL (6.4-8.2)
[2016-10-01] MEDS ORDERED: ZOLOFT PO ONE (08:39)
[2016-10-01] MEDS: PriLOSEC PO SCH ×2 (08:45→21:41)
[2016-10-01] MEDS: COLACE CAP 100 MG PO SCH ×2 (08:46→21:41)
[2016-10-01] MEDS: LOPRESSOR TAB 50 MG PO SCH ×2 (08:46→21:41)
[2016-10-01] MEDS: MICRO K EXTEN CAP 10 MEQ PO SCH ×4 (08:46→21:39)
[2016-10-01] MEDS: ZOLOFT PO SCH (08:46)
[2016-10-01] MEDS: ZAROXOYLN PO SCH (08:46)
[2016-10-01] MEDS: M.S. CONTIN 30 MG EXTENDED RELEASE PO SCH ×2 (08:46→21:40)
[2016-10-01] MEDS: ARICEPT TAB 5 MG PO SCH (08:46)
[2016-10-01] MEDS: ALBUMIN HUMAN 25%- 100ML 100 ML IV SCH (08:47)
[2016-10-01] MEDS: OTBS NS XX SCH ×2 (08:57→20:50)
--- NOTE | 2016-10-01 10:06 | PCM.PROG ---
Progress Note - Progress Note for Day of Date: 10/01/16 - Subjective Subjective: Patient is 65yo old male who presented to the ER with complaints of shortness of breath and was admitted with cardiomegaly, pulmonary vascular congestion and pleural fluid in the right lung base. Patient states he is feeling somewhat better this am but he is still having shortness of breath. His 6minute walk test showed 87% oxygen saturation while exercising and 89% resting after exercise. Patient also had an overnight pulse ox performed which showed his lowest saturation to be 73%, 22% of the time his oxygen saturation was less than 90% and 11% of the time his oxygen saturation was less than 88%. Due to the fact that patient is having excessive shortness of breath, sleepy during the day and tiredness as well as history of CPAP use we are going to set him up with an outpatient sleep study. And due to increased weakness and shortness of breath the patient will be set up with physical therapy outpatient. His chest xray this am shows cardiomegaly without CHF and no infiltrates. Labs this am are within normal limits with the exception of RBC 4.18, Hgb 12.2, Hct 36.2, Lymph% 20.2, Eos% 3.2, Neut#5.0, BUN 40, Creatinine 1.76, Est GFR 42, Glucose 122, Calcium 8.2, CRP 45.50, Albumin 3.3, Albumin/Globulin Ratio 0.9. Vital signs this am are 98.4, 88, 20, 95% and 125/58. We will continue his current treatment for one more day and possibly discharge him home in the am. We will repeat labs and CXR in the AM. - Past Medical Family Social History Past Med/Fam/Surg Hx: No changes since H&P Allergies: Allergies Penicillins Allergy (Unknown, Verified 01/21/14 19:24) - Review of Systems ROS: No change since H&P - Vital Signs and I&O's Vital Signs: Vital signs this am are 98.4, 88, 20, 95% and 125/58 Intake and Output: Intake & Output 09/28/16 09/29/16 09/30/16 10/01/16 11:59 11:59 11:59 11:59 Intake Total 3072 2140 4135 3868 Output Total 2670 1700 3850 1175 Balance 402 621 792 4983 - Physical Exam Oriented: Normal Eyes: Normal Ear: Normal Nose: Normal Throat: Normal Respiratory: Rales Cardiovascular: Normal : Normal Auscultation: Bowel Sounds: Normal Tenderness: Normal Skin: Normal Musculoskeletal: Normal Psychiatric: Normal Mood Description: Calm, Appropriate Affect: Normal Speech Pattern: Clear, Appropriate - Laboratory and Diagnostics Result Diagrams: 10/01/16 03:20 10/01/16 03:20 Labs: Laboratory WBC 7.2 X10^3/uL (3.6-10.0) 10/01/16 03:20 RBC 4.18 X10^6/uL (4.7-6.0) L 10/01/16 03:20 Hgb 12.2 g/dL (13.5-18.0) L 10/01/16 03:20 Hct 36.2 % (42.0-54.0) L 10/01/16 03:20 MCV 86.7 fL (80.0-100.0) 10/01/16 03:20 MCH 29.2 pg (27.0-34.0) 10/01/16 03:20 MCHC 33.7 g/dL (33.0-35.0) 10/01/16 03:20 RDW 15.4 % (11.6-16.5) 10/01/16 03:20 Plt Count 225 X10^3/uL (150.0-450.0) 10/01/16 03:20 MPV 9.0 fL (7.4-11.0) 10/01/16 03:20 Neut % 69.1 % (42.0-75.0) 10/01/16 03:20 Lymph % 20.2 % (21.0-51.0) L 10/01/16 03:20 [place] % 6.6 % (0.0-13.0) 10/01/16 03:20 Eos % 3.2 % (0.9-2.9) H 10/01/16 03:20 Baso % 0.9 % (0.2-1.0) 10/01/16 03:20 Neut # 5.0 x10^3/uL (2.2-4.8) H 10/01/16 03:20 Lymph # 1.5 X10^3/uL (1.3-2.9) 10/01/16 03:20 [place] # 0.5 x10^3/uL (0.3-0.8) 10/01/16 03:20 Eos # 0.2 x10^3/uL (0.0-0.2) 10/01/16 03:20 Baso # 0.1 X10^3/uL (0.0-0.1) 10/01/16 03:20 Absolute Nucleated RBC 0.1 /100WBC 10/01/16 03:20 ESR 15 MM/HOUR (0-15) 10/01/16 03:20 INR Target Range - 09/29/16 04:42 INR 2.04 (0.8-1.3) H 09/29/16 04:42 Sample Site Right radial 09/27/16 13:46 ABG pH 7.440 (7.35-7.45) 09/27/16 13:46 ABG pCO2 47.0 mmHg (35.0-45.0) H 09/27/16 13:46 ABG pO2 84.0 mmHg (80.0-100.0) 09/27/16 13:46 ABG HCO3 31.9 mmol/L (22-26) H* 09/27/16 13:46 ABG O2 Saturation 97.0 % (90-100) 09/27/16 13:46 ABG Base Excess 6.7 mmol/L (-2.0-2.0) H 09/27/16 13:46 Felix Test Pos 09/27/16 13:46 A-a Gradient 57.0 mmHg 09/27/16 13:46 FiO2 28.000 09/27/16 13:46 Blood Gas Comments Alycia well aw 09/27/16 13:46 Sodium 140 mmol/L (136-145) 10/01/16 03:20 Corrected Sodium 141 mmol/L (136-145) 10/01/16 03:20 Potassium 4.0 mmol/L (3.5-5.1) 10/01/16 03:20 Chloride 103 mmol/L (98-107) 10/01/16 03:20 Carbon Dioxide 29.8 mmol/L (21-32) 10/01/16 03:20 BUN 40 mg/dL (7-18) H 10/01/16 03:20 Creatinine 1.76 mg/dL (0.70-1.30) H 10/01/16 03:20 Est GFR (MDRD) Af Amer 51 (>60) L 10/01/16 03:20 Est GFR (MDRD) Non-Af 42 (>60) L 10/01/16 03:20 Glucose 122 mg/dL (65-99) H 10/01/16 03:20 Calcium 8.2 mg/dL (8.5-10.1) L 10/01/16 03:20 Corrected Calcium 8.8 mg/dL (8.5-10.1) 10/01/16 03:20 Total Bilirubin 0.80 mg/dL (0.2-1.0) 10/01/16 03:20 AST 25 Units/L (15-37) 10/01/16 03:20 ALT 22 Units/L (12-78) 10/01/16 03:20 Alkaline Phosphatase 70 Units/L (46-116) 10/01/16 03:20 Creatine Kinase 74 Units/L (39-308) 09/27/16 11:15 CK-MB (CK-2) 2.1 ng/mL (0-4.0) 09/27/16 11:15 CK/CKMB % Calc 2.8 % (<4) 09/27/16 11:15 Troponin I 0.03 ng/mL (0-1.5) 09/27/16 11:15 C-Reactive Protein 45.50 mg/L (0-3.0) H 10/01/16 03:20 Total Protein 6.8 g/dL (6.4-8.2) 10/01/16 03:20 Albumin 3.3 g/dL (3.4-5.0) L 10/01/16 03:20 Globulin 3.5 g/dL (2.5-4.5) 10/01/16 03:20 Albumin/Globulin Ratio 0.9 Ratio (1.1-2.1) L 10/01/16 03:20 Specimen Type Clean catch urine 09/27/16 16:01 Urine Color Yellow (YELLOW) 09/27/16 16:01 Urine Appearance Clear (CLEAR) 09/27/16 16:01 Urine pH 7.0 (5.0 - 8.0) 09/27/16 16:01 Ur Specific [place] 1.005 (1.000-1.030) 09/27/16 16:01 Urine Protein Negative (NEGATIVE) 09/27/16 16:01 Urine Glucose (UA) Negative (NEGATIVE) 09/27/16 16:01 Urine Ketones Negative (NEGATIVE) 09/27/16 16:01 Urine Occult Blood 1+ (NEGATIVE) 09/27/16 16:01 Urine Nitrite Negative (NEGATIVE) 09/27/16 16:01 Urine Bilirubin Negative (NEGATIVE) 09/27/16 16:01 Urine Urobilinogen Normal (NORMAL) 09/27/16 16:01 Ur Leukocyte Esterase 1+ (NEGATIVE) 09/27/16 16:01 Urine RBC Rare /HPF (NEGATIVE) 09/27/16 16:01 Urine WBC Rare /HPF (NEGATIVE) 09/27/16 16:01 Ur Squamous Epith Cells Rare /HPF (NEGATIVE) 09/27/16 16:01 Amorphous Sediment Trace /HPF (NEGATIVE) 09/27/16 16:01 Urine Bacteria Negative /HPF (NEGATIVE) 09/27/16 16:01 Ur Culture Indicated? No/not indicated 09/27/16 16:01 Digoxin 0.93 ng/mL (0.9-2) 09/28/16 04:25 Radiology Reviewed: Yes - Plan (1) Pulmonary vascular congestion Status: Acute Plan: set up for sleep study outpatient (2) Cardiomegaly Status: Acute (3) Atrial fibrillation Status: Chronic Qualifiers: Atrial fibrillation type: chronic Qualified Code(s): I48.2 - Chronic atrial fibrillation Plan: continue coumadin (4) Coronary atherosclerosis of [place] coronary artery Status: Chronic Qualifiers: [place] vs. transplanted heart: N Associated angina: A (5) Diabetic neuropathy Status: Chronic Qualifiers: Diabetes mellitus type: D Diabetes mellitus complication detail: D (6) Essential hypertension, benign Status: Chronic Plan: continue lopressor and monitor (7) Mixed hyperlipidemia Status: Chronic Plan: continue fenofibrate (8) Type II diabetes mellitus, uncontrolled Status: Chronic Qualifiers: Diabetes mellitus complication status: D Diabetes mellitus complication detail: D Diabetic retinopathy severity: D Proliferative retinopathy type: P Diabetes mellitus macular edema: D Diabetes mellitus correction insulin use : D Laterality: L Chronic kidney disease stage: C Plan: continue home medication Insulin Tresiba
[2016-10-01] MEDS: NORCO 10/325 TAB PO PRN (12:04)
[2016-10-01] MEDS: NS 1000 ML 1,000 ML IV SCH (14:03)
[2016-10-01] MEDS: SNACK - Diabetic Appropriate PO SCH (20:00)
[2016-10-01] MEDS ORDERED: COLACE CAP 100 MG PO SCH (21:00)
[2016-10-01] MEDS ORDERED: MILK OF MAGNESIA PO SCH (21:00)
[2016-10-01] MEDS: FLOMAX PO SCH (21:39)
[2016-10-01] MEDS: KLONOPIN TAB 1 MG PO SCH (21:39)
[2016-10-01] MEDS: COUMADIN TAB 4 MG PO SCH (21:40)
[2016-10-01] MEDS: INSULIN DEGLUDEC 64 UNIT SUBCUT SCH (21:41)
[2016-10-01] MEDS: TRICOR TAB 145 MG PO SCH (21:42)
[2016-10-01] MEDS ORDERED: RESTORIL CAP 15 MG PO PRN (21:50)
[2016-10-02] MEDS: NS 1000 ML 1,000 ML IV SCH (04:30)
[2016-10-02] MEDS: REQUIP PO SCH ×2 (05:44→14:33)
[2016-10-02] MEDS: ATARAX TAB 25 MG PO SCH ×2 (05:44→14:32)
--- NOTE | 2016-10-02 06:16 | RAD ---
HISTORY: Shortness of breath Study: Chest one view Comparison: October 01, 2016 Findings: The patient is status post median sternotomy. The heart is enlarged. Mild pulmonary venous congestio n is present. No interstitial or alveolar pulmonary edema, alveolar infiltrates, or pleural effusion s are identified. The bony thorax is unremarkable. IMPRESSION: Cardiomegaly with pulmonary venous congestion No infiltrates Reported By:
[2016-10-02 06:57] LABS: BASOPHILS # (AUTO) 0.1 X10^3/uL (0.0-0.1); BASOPHILS % (AUTO) 0.9 % (0.2-1.0); EOSINOPHILS # (AUTO) 0.2 x10^3/uL (0.0-0.2); HEMATOCRIT 34.8 % (42.0-54.0); HEMOGLOBIN 11.6 g/dL (13.5-18.0); LYMPHOCYTES # (AUTO) 1.3 X10^3/uL (1.3-2.9); LYMPHOCYTES % (AUTO) 22.1 % (21.0-51.0); MEAN CORPUSCULAR HGB CONC 33.3 g/dL (33.0-35.0); MEAN CORPUSCULAR VOLUME 87.1 fL (80.0-100.0); MONOCYTES # (AUTO) 0.4 x10^3/uL (0.3-0.8); MONOCYTES % (AUTO) 7.1 % (0.0-13.0); NEUTROPHILS # (AUTO) 3.8 x10^3/uL (2.2-4.8); NEUTROPHILS % (AUTO) 65.9 % (42.0-75.0); PLATELET COUNT 218 X10^3/uL (150.0-450.0); RED CELL DISTRIBUTION WIDTH 15.8 % (11.6-16.5); WHITE BLOOD COUNT 5.8 X10^3/uL (3.6-10.0)
[2016-10-02 07:18] LABS: ALANINE AMINOTRANSFERASE 32 Units/L (12-78); ALBUMIN 3.4 g/dL (3.4-5.0); ALKALINE PHOSPHATASE 95 Units/L (46-116); ASPARTATE AMINO TRANSFERASE 54 Units/L (15-37); BLOOD UREA NITROGEN 45 mg/dL (7-18); CALCIUM 8.3 mg/dL (8.5-10.1); CARBON DIOXIDE 27.5 mmol/L (21-32); CHLORIDE 106 mmol/L (98-107); COR NA(FOR HYPERGLY) 142 mmol/L (136-145); CREATININE 1.53 mg/dL (0.70-1.30); GLUCOSE 111 mg/dL (65-99); SODIUM 142 mmol/L (136-145); TOTAL PROTEIN 6.8 g/dL (6.4-8.2); eGFR BLACK RACES 59 (>60); eGFR NON BLACK RACES 49 (>60)
[2016-10-02 07:46] LABS: ERYTHROCYTE SEDIMENTATION RATE 14 MM/HOUR (0-15)
[2016-10-02] MEDS ORDERED: ZOLOFT PO ONE (08:56)
[2016-10-02] MEDS: ALBUMIN HUMAN 25%- 100ML 100 ML IV SCH (09:50)
[2016-10-02] MEDS: ZOLOFT PO SCH (09:52)
[2016-10-02] MEDS: ARICEPT TAB 5 MG PO SCH (09:52)
[2016-10-02] MEDS: ZAROXOYLN PO SCH (09:52)
[2016-10-02] MEDS: MICRO K EXTEN CAP 10 MEQ PO SCH ×2 (09:52→14:32)
[2016-10-02] MEDS: PriLOSEC PO SCH (09:52)
[2016-10-02] MEDS: LOPRESSOR TAB 50 MG PO SCH (09:52)
[2016-10-02] MEDS: COLACE CAP 100 MG PO SCH (09:53)
[2016-10-02] MEDS: M.S. CONTIN 30 MG EXTENDED RELEASE PO SCH (09:53)
[2016-10-02] MEDS: OTBS NS XX SCH (09:54)
[2016-10-02 12:37] VITALS: BP 116/57
--- NOTE | 2016-10-02 13:47 | DR.CARTERD ---
- Discharge Summary for: Discharge Summary for Date of:: 10/02/16 - Admission Date Date of Admission: 09/27/16 - Admission Diagnoses Admission Diagnosis: Cardiomegaly. Pulmonary Venous Congestion. Hypertriglyceridemia. Hypertension. Coronary Artery Disease. Diabetes. Atrial Fibrillation. Valvular Heart Disease - Discharge Date Discharge Date: 10/02/16 - Discharge Diagnoses Discharge Diagnosis: Cardiomegaly Pulmonary Venous Congestion Hypoalbuminemia Hypertriglyceridemia Hypertension Coronary Artery Disease Diabetes Atrial Fibrillation Valvular Heart Disease - Hospital Course Hospital Course: Patient is 65yo old male who presented to the ER with complaints of shortness of breath and was admitted with cardiomegaly, pulmonary vascular congestion and pleural fluid in the right lung base. Patneint was placed on supplemental oxygen and IV Fluids. Patient has some hypoalbuminemia for which he was treated with Albumin IV Daily. Physical therapy worked with patient on a daily basis and strength has slowly improved but is not yet a t optimal performance. His 6minute walk test showed 87% oxygen saturation while exercising and 89% resting after exercise. Patient also had an overnight pulse ox performed which showed his lowest saturation to be 73%, 22% of the time his oxygen saturation was less than 90% and 11% of the time his oxygen saturation was less than 88%. Due to the fact that patient is having excessive shortness of breath, sleepy during the day and tiredness as well as history of CPAP use we are going to set him up with an outpatient sleep study. And due to increased weakness and shortness of breath the patient will be set up with physical therapy outpatient. His chest xray this am shows cardiomegaly with pulmonary venous congestion and no infiltrates. Labs this am are within normal limits with the exception of RBC 4.00, Hgb 11.6 , Hct 34.8, Eos% 4.0, BUN45, Creatinine 1.53, Est GFR 49, Glucose 111, [place] 8.3, AST 54, CRP 44, Albumin/globulin ratio. Vital signs this am are 98.1, 55, 16, 98%, 139/72. . Patient is feeling better this am we are going to discharge him home in stable condition to be set up with oxygen at home, outpatient physical therapy, have an outpatient sleep study he will need CBC, CMP, and Digoxin levels checked weekly and is to followed with his home health care [facility]. Patient is to continue his home medications with the exception of his Lasix which will be decreased to 20mg PO BID. Labs: RBC 4.00, Hgb 11.6 , Hct 34.8, Eos% 4.0, BUN45, Creatinine 1.53, Est GFR 49, Glucose 111, [place] 8.3, AST 54, CRP 44, Albumin/globulin ratio. - Discharge Medications Discharge Medications: Furosemide [Lasix] 20 mg PO BID #60 tab 10/02/16 [Rx] - Discharge Disposition Discharge Disposition: Home with home health, oxygen and outpatient physical therapy
== END 2016-10-02 15:30 | disposition home health service (06) ==
LOC: ER 10:57 → MED/SURG 15:15
PROVIDERS: ADMIT Internal Medicine; ATTEND Internal Medicine
DX: I51.7 Cardiomegaly (principal); J16.8 Pneumonia due to other specified infectious organisms; I50.9 Heart failure, unspecified; J81.0 Acute pulmonary edema; R79.1 Abnormal coagulation profile; M13.89 Other specified arthritis, multiple sites; F41.8 Other specified anxiety disorders; I25.10 Atherosclerotic heart disease of native coronary artery without angina pectoris; E78.2 Mixed hyperlipidemia; I10 Essential (primary) hypertension; R06.02 Shortness of breath; I48.2 Chronic atrial fibrillation; D64.89 Other specified anemias; R26.89 Other abnormalities of gait and mobility
CPT/HCPCS: 36415; 36600; 71010; 80053; 80162; 81001; 82550; 82553; 82803; 84484; 85025; 85610; 85652; 86140; 87040; 87070; 87205; 93306; 94760; 94762; 96365; 96374; 97535; 99284; A4216; A4222; G8987; G8988; P9047; G0378; J1940

== ENCOUNTER 2016-11-03 20:22 | Observation (INO) | payer OTHER ==
[2016-11-03 21:05] LABS: BASOPHILS # (AUTO) 0.1 X10^3/uL (0.0-0.1); BASOPHILS % (AUTO) 1.1 % (0.2-1.0); EOSINOPHILS # (AUTO) 0.2 x10^3/uL (0.0-0.2); EOSINOPHILS % (AUTO) 1.8 % (0.9-2.9); HEMATOCRIT 35.5 % (42.0-54.0); LYMPHOCYTES % (AUTO) 11.4 % (21.0-51.0); MEAN CORPUSCULAR HEMOGLOBIN 29.1 pg (27.0-34.0); MEAN CORPUSCULAR HGB CONC 33.8 g/dL (33.0-35.0); MEAN CORPUSCULAR VOLUME 86.2 fL (80.0-100.0); MEAN PLATELET VOLUME 8.8 fL (7.4-11.0); MONOCYTES # (AUTO) 0.4 x10^3/uL (0.3-0.8); MONOCYTES % (AUTO) 4.3 % (0.0-13.0); NEUTROPHILS # (AUTO) 7.2 x10^3/uL (2.2-4.8); NEUTROPHILS % (AUTO) 81.4 % (42.0-75.0); PLATELET COUNT 218 X10^3/uL (150.0-450.0); RED BLOOD COUNT 4.12 X10^6/uL (4.7-6.0); RED CELL DISTRIBUTION WIDTH 15.9 % (11.6-16.5); WHITE BLOOD COUNT 8.9 X10^3/uL (3.6-10.0)
[2016-11-03 21:20] LABS: BLOOD UREA NITROGEN 23 mg/dL (7-18); CALCIUM 7.7 mg/dL (8.5-10.1); CARBON DIOXIDE 31.8 mmol/L (21-32); CHLORIDE 102 mmol/L (98-107); COR NA(FOR HYPERGLY) 141 mmol/L (136-145); CREATININE 1.23 mg/dL (0.70-1.30); GLUCOSE 156 mg/dL (65-99); SODIUM 140 mmol/L (136-145); TROPONIN I 0.05 ng/mL (0-1.5); eGFR BLACK RACES > 60 (>60); eGFR NON BLACK RACES > 60 (>60)
[2016-11-03 21:24] LABS: ALANINE AMINOTRANSFERASE 21 Units/L (12-78); ALBUMIN 2.9 g/dL (3.4-5.0); ALKALINE PHOSPHATASE 79 Units/L (46-116); ASPARTATE AMINO TRANSFERASE 34 Units/L (15-37); CKMB % 1.7 % (<4); COR CA(FOR HYPOALB) 8.6 mg/dL (8.5-10.1); CREATINE KINASE 85 Units/L (39-308); CREATINE KINASE MB 1.4 ng/mL (0-4.0); TOTAL PROTEIN 6.7 g/dL (6.4-8.2)
[2016-11-03 22:24] LABS: BILIRUBIN,URINE NEGATIVE (NEGATIVE); BLOOD/HEMOGLOBIN,URINE NEGATIVE (NEGATIVE); GLUCOSE, URINE NEGATIVE (NEGATIVE); KETONES,URINE NEGATIVE (NEGATIVE); LEUKOCYTE ESTERASE ,URINE NEGATIVE (NEGATIVE); NITRITES,URINE NEGATIVE (NEGATIVE); PROTEIN,URINE 2+ (NEGATIVE); UROBILINOGEN,URINE 1+ (NORMAL)
[2016-11-03 22:29] LABS: ABG BASE EXCESS 8.2 mmol/L (-2.0-2.0)
[2016-11-03 22:30] LABS: ABG ALLEN TEST POS; ABG HCO3 34.7 mmol/L (22-26)
[2016-11-03] MEDS ORDERED: LASIX IVP ONE ×2 (22:49→22:50)
[2016-11-03] MEDS ORDERED: SOLU-Medrol 125 MG VIAL IVP ONE (22:49)
[2016-11-03] MEDS ORDERED: SOLU-Medrol 125 MG VIAL ONE (22:50)
--- NOTE | 2016-11-03 22:50 | RAD ---
Chest AP portable Indication: Chest pain. Comparison: October 02, 2016. Findings: There is no pneumothorax. There is cardiomegaly with increased interstitial markings. Kurtis a is present. Impression: Cardiomegaly and pulmonary edema compatible with CHF. Reported By:
[2016-11-03] MEDS ORDERED: DUONEB 0.5 MG/3 MG NEB ONE (22:51)
[2016-11-03 22:54] LABS: APPEARANCE,URINE CLEAR (CLEAR); BACTERIA,URINE NEGATIVE /HPF (NEGATIVE); COLOR,URINE YELLOW (YELLOW); RBC,URINE 0-3 /HPF (NEGATIVE); SQUAMOUS EPITHELIAL CELL,UR RARE /HPF (NEGATIVE)
[2016-11-03] MEDS ORDERED: VENTOLIN or PROAIR HFA ONE (23:00)
--- NOTE | 2016-11-04 00:10 | DR.SOBA ---
HPI - Time Seen Time seen: 02:26 - Primary Care Physician Primary Care Physician: ETHAN - HPI Comment HPI Comment: PATIENT ALSO HAVING HALLUCINATIONS /VISUAL AND AUDITORY. HAD DONE THIS SEVERAL MONTHS WITH NEGATIVE CT AND BRAIN MRI BRAIN. THESE HALLUCINATIONS WERE AT NIGHT. TODAY HAPPEN DURING THE DAY. NO FEVER. HAVE DIABETIC FOOT ULCERS. ONE ON THE RIGHT SIDE IS DRAINING. - Complaints Chief Complaint Doctors Comments: INCREASING SOB TIMES FEW DAYS. WORSE TONIGHT. Chief Complaint:: AMS, SHORTNESS OF BREATH - Reviewed Nurses Notes Reviewed: Yes - Source History Provided: Patient, EMS - Mode of Arrival Mode of Arrival: EMS - Timing Onset of Chief Complaint: 11/01/16 - Duration Duration: Days - Context Onset:: At Rest, With Light Exertion PE Risk Factors:: None History of:: Anxiety Currently on:: Inhaled Bronchodilators Prehospital Care:: Inhaled B2 - Modifying Factors Worsens:: Exertion, Lying Flat Improves:: Nothing - Associated Signs and Symptoms Associated Signs and Symptoms: Wheeze, Cough, Chest Pain. denies: Calf Pain - If Chest Pain Quality: Pressure like, Heavy Location: Substernal - If Cough Cough: Nonproductive PMH - PMH Past Medical History: Yes Past Medical History: Angina, Anxiety, Arthritis, Coronary Artery Disease, Depression, Diabetes, Dyslipidemia, Hypertension, Kidney Stones Past Surgical History: Yes Surgical History: CABG/Valve Surgery, Ortho Surgery - Family History History of Family Medical Conditions: Yes Family Medical History: Diabetes Mellitus, Coronary Artery Disease, Hypertension - Social History Does patient currently use any type of tobacco product: No Have you used tobacco products in the last 12 months: No Type of Tobacco Use: Cigarettes Does any household member use tobacco: No Alcohol Use: None Do you use any recreational Drugs:: No Lives With: Family Lives Where: Home - infectious screening In the last 2 months have you had wt loss of >10#?: NO Have you had fever, night sweats or hemotysis?: No Have you traveled outside the country in the last 6 months?: No Isolation: Standard ROS - Review of Systems Constitutional: Weakness, Fatigue, Loss of Appetite. negative: Chills, Fever Eyes: No Symptoms Reported. negative: Eye Pain, Discharge ENTM: Nose Congestion. negative: Ear Pain, Nose Discharge, Throat Pain Respiratoy: Productive Cough, Short of Breath, Wheezing. negative: Hemoptysis Cardiovascular: Edema (ONE PLUS) Gastrointestinal/Abdominal: Nausea. negative: Abdominal Pain, Diarrhea, Vomiting Genitourinary: Other (STRAIN TO INITIATE URINATION). negative: Dysuria, Hematuria Neurological: Headache, Weakness, Dizziness Musculoskeletal: Joint Pain, Joint Swelling, Muscle Pain Integumentary: Change in Color, Rash (STASIS DERMATITIS) Hematologic/Lymphatic: Easy Bleeding, Easy Bruising Endocrine: Increased Thirst. negative: [place] Psychiatric: Hallucinations All Other Systems: Reviewed and Negative PE - Vital Signs Vitals: Pulse Rate 69 Respiratory Rate 18 Blood Pressure [Left Arm] 116/57 Blood Pressure [Right Arm] 164/70 Blood Pressure 148/64 O2 Sat by Pulse Oximetry 97 - General Limitations: No Limitations General Appearance: Alert, Anxious - Head Head Exam: Normal Inspection - Eyes Eye exam: Normal Appearance, PERRL, EOMI. negative: Scleral Icterus, Conjunctival Injection - ENT ENT Exam: Normal External Ear Exam - Neck Neck Exam: Trachea Midline - Chest Chest Inspection: Symmetric Chest Wall Rise - Respiratory Respiratory Exam: Prolonged Expiratory Phase, Respiratory Distress Respiratory Exam: Bilateral Wheezing, Bilateral Rhonchi, Upper Wheezing, Upper Rhonchi, Lower Wheezing, Lower Rhonchi - Cardiovascular Cardiovascular Exam: Irregular Rhythm - Abdominal Exam Abdominal Exam: Normal Bowel Sounds, Soft. negative: Tenderness - Extremities Extremities Exam: Edema - Back Back Exam: Paraspinal Tenderness - Neurologic Neurological Exam: Alert, Oriented X3 - Psychiatric Psychiatric Exam: Anxious - Skin Skin Exam: Erythema MDM - Additional Information Obtained Additional Information Obtained From: Family - Differential Diagnosis Differential Diagnosis: Anxiety, Bronchitis, CHF, COPD, Dysrhythmia, Mycardial Infarction, Pneumonia, Pneumothorax, Pulmonary embolism, Respiratory Failure Course - Treatment Treatment: SEE ORDERS. - Reevaluation 1st: Improved (IV LASIX, SOLUMEDROL AND NEB RX WITH DUO NEB IN ED. SOB IMPROVING.) - Consultation Consultation Comments: DISCUSS PATIENT WITH DR. ROCK. HE WILL ADMIT PATIENT. - Education/Counseling Education/Counseling: Patient, Family, Education Educated On: Treatment, Diagnosis ROR - Labs Reviewed Laboratory Results Reviewed?: Yes Result Diagrams: 11/03/16 20:56 11/03/16 20:56 Laboratory: WBC 8.9 X10^3/uL (3.6-10.0) 11/03/16 20:56 RBC 4.12 X10^6/uL (4.7-6.0) L 11/03/16 20:56 Hgb 12.0 g/dL (13.5-18.0) L 11/03/16 20:56 Hct 35.5 % (42.0-54.0) L 11/03/16 20:56 MCV 86.2 fL (80.0-100.0) 11/03/16 20:56 MCH 29.1 pg (27.0-34.0) 11/03/16 20:56 MCHC 33.8 g/dL (33.0-35.0) 11/03/16 20:56 RDW 15.9 % (11.6-16.5) 11/03/16 20:56 Plt Count 218 X10^3/uL (150.0-450.0) 11/03/16 20:56 MPV 8.8 fL (7.4-11.0) 11/03/16 20:56 Neut % 81.4 % (42.0-75.0) H 11/03/16 20:56 Lymph % 11.4 % (21.0-51.0) L 11/03/16 20:56 [place] % 4.3 % (0.0-13.0) 11/03/16 20:56 Eos % 1.8 % (0.9-2.9) 11/03/16 20:56 Baso % 1.1 % (0.2-1.0) H 11/03/16 20:56 Neut # 7.2 x10^3/uL (2.2-4.8) H 11/03/16 20:56 Lymph # 1.0 X10^3/uL (1.3-2.9) L 11/03/16 20:56 [place] # 0.4 x10^3/uL (0.3-0.8) 11/03/16 20:56 Eos # 0.2 x10^3/uL (0.0-0.2) 11/03/16 20:56 Baso # 0.1 X10^3/uL (0.0-0.1) 11/03/16 20:56 Absolute Nucleated RBC 0.0 /100WBC 11/03/16 20:56 Sample Site R rad 11/03/16 22:25 ABG pH 7.400 (7.35-7.45) 11/03/16 22:25 ABG pCO2 56.0 mmHg (35.0-45.0) H* 11/03/16 22:25 ABG pO2 76.0 mmHg (80.0-100.0) L 11/03/16 22:25 ABG HCO3 34.7 mmol/L (22-26) H* 11/03/16 22:25 ABG O2 Saturation 95.0 % (90-100) 11/03/16 22:25 ABG Base Excess 8.2 mmol/L (-2.0-2.0) H 11/03/16 22:25 Felix Test Pos 11/03/16 22:25 A-a Gradient 54.0 mmHg 11/03/16 22:25 FiO2 28.000 11/03/16 22:25 Blood Gas Comments Alycia well, afh 11/03/16 22:25 Sodium 140 mmol/L (136-145) 11/03/16 20:56 Corrected Sodium 141 mmol/L (136-145) 11/03/16 20:56 Potassium 3.9 mmol/L (3.5-5.1) 11/03/16 20:56 Chloride 102 mmol/L (98-107) 11/03/16 20:56 Carbon Dioxide 31.8 mmol/L (21-32) 11/03/16 20:56 BUN 23 mg/dL (7-18) H 11/03/16 20:56 Creatinine 1.23 mg/dL (0.70-1.30) 11/03/16 20:56 Est GFR (MDRD) Af Amer > 60 (>60) 11/03/16 20:56 Est GFR (MDRD) Non-Af > 60 (>60) 11/03/16 20:56 Glucose 156 mg/dL (65-99) H 11/03/16 20:56 Calcium 7.7 mg/dL (8.5-10.1) L 11/03/16 20:56 Corrected Calcium 8.6 mg/dL (8.5-10.1) 11/03/16 20:56 Total Bilirubin 0.60 mg/dL (0.2-1.0) 11/03/16 20:56 AST 34 Units/L (15-37) 11/03/16 20:56 ALT 21 Units/L (12-78) 11/03/16 20:56 Alkaline Phosphatase 79 Units/L (46-116) 11/03/16 20:56 Creatine Kinase 85 Units/L (39-308) 11/03/16 20:56 CK-MB (CK-2) 1.4 ng/mL (0-4.0) 11/03/16 20:56 CK/CKMB % Calc 1.7 % (<4) 11/03/16 20:56 Troponin I 0.05 ng/mL (0-1.5) 11/03/16 20:56 Total Protein 6.7 g/dL (6.4-8.2) 11/03/16 20:56 Albumin 2.9 g/dL (3.4-5.0) L 11/03/16 20:56 Globulin 3.8 g/dL (2.5-4.5) 11/03/16 20:56 Albumin/Globulin Ratio 0.8 Ratio (1.1-2.1) L 11/03/16 20:56 Specimen Type Clean catch urine 11/03/16 22:13 Urine Color Yellow (YELLOW) 11/03/16 22:13 Urine Appearance Clear (CLEAR) 11/03/16 22:13 Urine pH 7.0 (5.0 - 8.0) 11/03/16 22:13 Ur Specific [place] 1.010 (1.000-1.030) 11/03/16 22:13 Urine Protein 2+ (NEGATIVE) 11/03/16 22:13 Urine Glucose (UA) Negative (NEGATIVE) 11/03/16 22:13 Urine Ketones Negative (NEGATIVE) 11/03/16 22:13 Urine Occult Blood Negative (NEGATIVE) 11/03/16 22:13 Urine Nitrite Negative (NEGATIVE) 11/03/16 22:13 Urine Bilirubin Negative (NEGATIVE) 11/03/16 22:13 Urine Urobilinogen 1+ (NORMAL) 11/03/16 22:13 Ur Leukocyte Esterase Negative (NEGATIVE) 11/03/16 22:13 Urine RBC 0-3 /HPF (NEGATIVE) 11/03/16 22:13 Urine WBC 0-3 /HPF (NEGATIVE) 11/03/16 22:13 Ur Squamous Epith Cells Rare /HPF (NEGATIVE) 11/03/16 22:13 Urine Bacteria Negative /HPF (NEGATIVE) 11/03/16 22:13 Ur Culture Indicated? No/not indicated 11/03/16 22:13 Urine Opiates Screen Positive (NEG=<300) 11/03/16 22:13 Urine Methadone Screen Negative (NEG=<300) 11/03/16 22:13 Ur Barbiturates Screen Positive (NEG=<200) 11/03/16 22:13 Ur Phencyclidine Scrn Negative (NEG=<25) 11/03/16 22:13 Ur Amphetamines Screen Negative (NEG=<1000) 11/03/16 22:13 U Benzodiazepines Scrn Negative (NEG=<200) 11/03/16 22:13 Urine Cocaine Screen Negative (NEG=<300) 11/03/16 22:13 U Marijuana (THC) Screen Negative (NEG=<50) 11/03/16 22:13 - XRAY XRAY Interpreted by: Radiologist XRAY Findings: REPORT DISCUSS WITH PATIENT. - EKG Rhythm: Afib (EKG NOTED. A FIB RATE CONTROL.) - Diagnosis Discharge Problem: Pulmonary edema cardiac cause, Respiratory distress, Hallucination - Discharge Plan Disposition: ADMITTED INPATIENT Condition: Stable - Follow ups/Referrals - Instructions
[2016-11-04] MEDS ORDERED: HYDROCODONE ACETAMINOPHEN PO PRN (00:40)
[2016-11-04] MEDS ORDERED: CAFFEINE PO PRN (00:40)
[2016-11-04] MEDS ORDERED: BUTALB PO PRN (00:40)
[2016-11-04] MEDS ORDERED: [UNRECOGNIZED DRUG - OTHER] PO PRN (00:40)
[2016-11-04] MEDS ORDERED: ACETAMINOPHEN PO PRN (00:40)
[2016-11-04] MEDS ORDERED: VITAMIN D (1.25MG) PO SCH (00:45)
[2016-11-04] MEDS ORDERED: TEFLARO IV ONE (00:45)
[2016-11-04] MEDS: TEFLARO 400 MG in NS 50 ML IV 50 ML IV SCH ×3 (01:04→20:48)
[2016-11-04 01:39] VITALS: BMI 41.4
[2016-11-04] MEDS: K-DUR TAB 20 MEQ PO SCH ×2 (02:33→09:51)
[2016-11-04 05:08] LABS: ALANINE AMINOTRANSFERASE 21 Units/L (12-78); ALKALINE PHOSPHATASE 77 Units/L (46-116); ASPARTATE AMINO TRANSFERASE 29 Units/L (15-37); BLOOD UREA NITROGEN 24 mg/dL (7-18); CALCIUM 7.7 mg/dL (8.5-10.1); CARBON DIOXIDE 31.8 mmol/L (21-32); CHLORIDE 101 mmol/L (98-107); CHOL/HDL RATIO 4.8 (0.0-5.0); CHOLESTEROL 143 mg/dL (0-200); COR CA(FOR HYPOALB) 8.5 mg/dL (8.5-10.1); COR NA(FOR HYPERGLY) 142 mmol/L (136-145); CREATININE 1.42 mg/dL (0.70-1.30); GLUCOSE 248 mg/dL (65-99); HDL CHOLESTEROL 30 mg/dL (40-60); SODIUM 138 mmol/L (136-145); TOTAL PROTEIN 6.8 g/dL (6.4-8.2); TRIGLYCERIDES 93 mg/dL (0-150); eGFR BLACK RACES > 60 (>60); eGFR NON BLACK RACES 54 (>60)
[2016-11-04 05:09] LABS: BASOPHILS % (AUTO) 0.4 % (0.2-1.0); EOSINOPHILS % (AUTO) 0.1 % (0.9-2.9); HEMATOCRIT 35.8 % (42.0-54.0); HEMOGLOBIN 12.1 g/dL (13.5-18.0); LYMPHOCYTES # (AUTO) 0.5 X10^3/uL (1.3-2.9); LYMPHOCYTES % (AUTO) 6.1 % (21.0-51.0); MEAN CORPUSCULAR HEMOGLOBIN 29.4 pg (27.0-34.0); MEAN CORPUSCULAR HGB CONC 33.9 g/dL (33.0-35.0); MEAN CORPUSCULAR VOLUME 86.9 fL (80.0-100.0); MEAN PLATELET VOLUME 9.3 fL (7.4-11.0); MONOCYTES # (AUTO) 0.1 x10^3/uL (0.3-0.8); MONOCYTES % (AUTO) 0.7 % (0.0-13.0); NEUTROPHILS # (AUTO) 7.3 x10^3/uL (2.2-4.8); NEUTROPHILS % (AUTO) 92.7 % (42.0-75.0); PLATELET COUNT 209 X10^3/uL (150.0-450.0); RED BLOOD COUNT 4.12 X10^6/uL (4.7-6.0); RED CELL DISTRIBUTION WIDTH 15.8 % (11.6-16.5); WHITE BLOOD COUNT 7.9 X10^3/uL (3.6-10.0)
[2016-11-04 05:14] LABS: CKMB % 1.8 % (<4); CREATINE KINASE MB 1.6 ng/mL (0-4.0); TROPONIN I 0.03 ng/mL (0-1.5)
[2016-11-04] MEDS: TOUJEO SOLOSTAR PEN SC SCH ×2 (05:36→11:37)
[2016-11-04] MEDS ORDERED: NORCO 10/325 TAB PO PRN (05:42)
[2016-11-04] MEDS ORDERED: FIORICET TAB PO PRN (05:50)
[2016-11-04] MEDS ORDERED: ROPINIROLE HCL 4 MG PO SCH (06:00)
[2016-11-04 06:39] LABS: PLATELET MORPHOLOGY COMMENT NORMAL (NORMAL)
[2016-11-04] MEDS: REQUIP PO SCH ×3 (06:39→21:04)
[2016-11-04] MEDS ORDERED: ZOLOFT PO ONE (08:52)
[2016-11-04] MEDS ORDERED: MORPHINE SULFATE 30 MG PO SCH (09:00)
[2016-11-04] MEDS ORDERED: ADVAIR DISKUS 250/50 IN SCH (09:00)
[2016-11-04] MEDS ORDERED: METOLAZONE 5 MG PO SCH (09:00)
[2016-11-04] MEDS ORDERED: PATIENT'S HOME MEDICATION (Fluticasone-Salmeterol 250/50 1 PUFF) IN SCH (09:00)
[2016-11-04] MEDS ORDERED: ZAROXOYLN PO SCH (09:00)
[2016-11-04] MEDS: LASIX IVP SCH ×2 (09:49→20:48)
[2016-11-04] MEDS: ZOLOFT PO SCH (09:51)
[2016-11-04] MEDS: LOPRESSOR TAB 50 MG PO SCH ×2 (09:52→20:47)
[2016-11-04] MEDS: PriLOSEC PO SCH ×2 (09:52→20:48)
[2016-11-04] MEDS: M.S. CONTIN 30 MG EXTENDED RELEASE PO SCH ×2 (09:52→20:47)
[2016-11-04] MEDS: LANOXIN PO SCH (09:53)
[2016-11-04] MEDS: NS 250 ML IV 250 ML IV SCH (09:54)
[2016-11-04] MEDS ORDERED: LASIX IVP SCH (11:00)
[2016-11-04 11:16] LABS: CKMB % 1.9 % (<4); CREATINE KINASE MB 1.7 ng/mL (0-4.0); TROPONIN I 0.02 ng/mL (0-1.5)
--- NOTE | 2016-11-04 11:23 | DR.H&P ---
H&P - History & Physical for Day of: H&P Date: 11/04/16 - Chief Complaint Chief Complaint: SHORTNESS OF BREATH, HALLUCINATIONS - Allergies Allergies/Adverse Reactions: Allergies Allergy/AdvReac Type Severity Reaction Status Date / Time Penicillins Allergy Verified 11/04/16 00:38 - History of Present Illness History of Present Illness: IS A 65 YEAR OLD PATIENT OF OURS WHO PRESENTED TO THE EMERGENCY ROOM WITH COMPLAINTS OF SHORTNESS OF BREATH AND HALLUCINATIONS. PATIENT STATED THAT HE HAS BEEN HAVING SHORTNESS OF BREATH FOR THREE DAYS, BUT IT HAD GOTTEN WORSE PRIOR TO ARRIVING TO THE ER. PATIENT HAS BEEN HAVING HALLUCINATIONS FOR SEVERAL MONTHS, MOSTLY AT NIGHT, BUT PATIENT STATES THAT HE HAS BEGAN HAVING THEM MORE OFTEN. PATIENT IS ALSO NOTED WITH COMPLAINTS OF DIABETIC FOOT ULCERS, WITH THE ULCER ON THE RIGHT GREAT TOE DRAINING. UPON ARRIVAL TO ER, VITALS WERE 97.2, 69, 18, 97%, 148/64. LABS, EKGS , AND CHEST XRAY WERE OBTAINED IN THE ER. CBC WITHIN NORMAL LIMITS EXCEPT RBC 4.12, HGB 12, HCT 35.5. CMP WITHIN NORMAL LIMITS EXCEPT BUN 23, GLUCOSE 156, CALCIUM 7.7, ALBUMIN 2.9. INR 2.5, PTT 42.9. ABG PH 7.4, PC02 56. HC03 34.7. EKG NORMAL. CHEST XRAY REPORTS CARDIOMEGALY AND PULMONARY EDEMA COMPATIBLE WITH CHF. PATIENT WAS ADMITTED FOR FURTHER TREATMENT AND EVALUATION. HE WAS STARTED ON LASIX 40MG IV BID, DUONEBS AND PULMICORT BREATHING TREATMENTS. HE WAS STARTED ON TEFLARO 400MG BID. HIS HOME MEDICATIONS WERE REVIEWED AND RESTARTED IN THE ER. ON MORNING ROUNDS, PATIENT IS LYING IN BED WITH EYES OPEN. IS AT BEDSIDE. HE IS NOTED WITH COMPLAINTS OF SHORTNESS OF BREATH AT THIS TIME. LUNGS ARE NOTED WITH WHEEZING ON AUSCULTATION. BOWEL SOUNDS ARE NORMAL IN ALL QUADRANTS. ULCERS NOTED TO BILATERAL FEET. VITALS THIS AM WERE 97.5, 60, 15, 96% , 101/41. LABS WERE RECHECKED THIS MORNING AND REPORTED RBC 4.12, HBG 12.1, HCT 35.8, BUN 24, CREATININE 1.42, GLUCOSE 248, CALCIUM 7.7, ALBUMIN 3.0, HDL CHOLESTEROL 30. CARDIAC PROFILES WERE WNL. INR 2.74, PTT 44. WE WILL PLAN TO CHECK A MRI OF BILATERAL LOWER EXTREMETIES, REPEAT LABS, AND FOLLOW UP WITH PATIENT IN AM. - Past Medical History Past Medical History: Angina, Anxiety, Arthritis, Coronary Artery Disease, Depression, Diabetes, Dyslipidemia, Hypertension, Kidney Stones Additional Medical History: Atrial fibrillation, Valvular Hear Disease, Pneumonia, Muscle Weakness, Back Pain - Past Surgical History Surgical History: CABG/Valve Surgery, Ortho Surgery Additional Surgical History: Femur Surgery, Ankle Surgery, Left Shoulder Replacment, Metal Heart Valve - Family History Family Medical History: Diabetes Mellitus, Coronary Artery Disease, Hypertension - Social History Does patient currently use any type of tobacco product: No Have you used tobacco products in the last 12 months: No Type of Tobacco Use: Cigarettes Does any household member use tobacco: No Alcohol Use: None Drug Use: None - Medications Home Medications: Butalb/Acetaminophen/Caffeine [Fioricet 50-300-40 mg] 1 cap PO Q8H PRN 11/03/16 [History Confirmed 11/04/16] Doxycycline Monohydrate [Doxycycline Monohydrate] 100 mg PO BID 11/03/16 [ History Confirmed 11/04/16] Ergocalciferol (Vitamin D2) [Vitamin D2] 50,000 unit PO WEEKLY 11/03/16 [ History Confirmed 11/04/16] Fluticasone-Salmeterol 250/50 [ADVAIR DISKUS 250/50 60-DOSE *] 1 puff IN BID [History Confirmed 11/04/16] Insulin Aspart Protamine & Asp [Novolog Mix 70/30] 0 units SC DAILY 11/03/16 [ History Confirmed 11/04/16] Insulin Glargine (Toujeo) [Toujeo Solostar Pen] 60 units SC ACHS 11/03/16 [ History Confirmed 11/04/16] Metoprolol Tartrate 100 mg PO BID 11/03/16 [History Confirmed 11/04/16] Olanzapine [Zyprexa] 2 tabs PO DAILY@1800 11/03/16 [History Confirmed 11/04/16] Warfarin Sodium [COUMADIN 4 MG *] 6 mg PO HS 11/03/16 [History Confirmed ] - Review of Systems Constitutional: Weakness Eyes: No Symptoms Reported. denies: See HPI, Pain, Vision Change, Conjunctivae Inflammation, Eyelid Inflammation, Redness, Other ENT: No Symptoms Reported. denies: See HPI, Ear Pain, Ear Discharge, Nose Pain , Nose Discharge, Nose Congestion, Mouth Pain, Mouth Swelling, Throat Pain, Throat Swelling, Other Respiratory: See HPI, Cough, Shortness of Breath, SOB with Excertion, Wheezing Cardiovascular: Edema Gastrointestinal: No Symptoms Reported. denies: See HPI, Nausea, Vomiting, Abdominal Pain, Diarrhea, Constipation, Melena, Hematochezia, Other Genitourinary: Other (PATIENT STATES THAT HE HAS TO STRAIN TO INITIATE URINATION ) Musculoskeletal: No Symptoms Reported. denies: See HPI, Shoulder Pain, Arm Pain , Back Pain, Hand Pain, Leg Pain, Foot Pain, Neck Pain, Other Skin: Wound Neurological: Weakness - Physical Exam Vital Signs: Temperature 97.2 F Pulse Rate [Apical] 71 Pulse Rate [Left Radial] 60 Pulse Rate 71 Respiratory Rate 21 Blood Pressure [Right Arm] 102/55 O2 Sat by Pulse Oximetry 97 Oriented: Normal. negative: Time, Person, Place, Not Oriented, Unable to test, Other Eyes: Normal. negative: Blurred Vision, Diplopia, Discharge, Pain, Redness, Photophobia, Other Ear: Normal. negative: Right, Left, Swelling, Ecchymosis, Hemotypanum, Abrasion , Laceration Nose: Normal. negative: Injected, Discharge, Blood, Other Throat: Normal. negative: Tonsillar Hypertrophy, Red, Exudate, Dry, Other Respiratory: Wheezes Throughout Cardiovascular: Edema : Normal Auscultation: Bowel Sounds: Normal Palpation: Normal Tenderness: Normal Skin: Normal, Wound Musculoskeletal: Leg, Swelling, Instability Psychiatric: Normal Mood Description: Calm Affect: Normal Speech Pattern: Clear - Assessment/Plan (1) Respiratory distress Status: Acute Plan: DUONEB AND PULMICORT TREATMENTS, LASIX 40MG BID, CHECK CHEST XRAY, SUPPLEMENTAL OXYGEN, CONTINUE TO MONITOR (2) Pulmonary edema with congestive heart failure Status: Acute Plan: DUONEB AND PULMICORT TREATMENTS, LASIX 40MG BID, CHECK CHEST XRAY, SUPPLEMENTAL OXYGEN, CONTINUE TO MONITOR (3) Diabetic foot ulcer Qualifiers: Diabetic foot ulcer location: toe Diabetes mellitus type: type 2 Laterality: right Non-pressure ulcer stage: unspecified non-pressure ulcer stage Qualified Code(s): E11.621 - Type 2 diabetes mellitus with foot ulcer; L97.519 - Non-pressure chronic ulcer of other part of right foot with unspecified severity Status: Acute Plan: MRI BILATERAL LOWER EXTREMETIES, WOUND CARE, CONTINUE TO MONITOR (4) Hallucination Status: Acute Plan: CONTINUE ZYPREXA, CONTINUE TO MONITOR
[2016-11-04] MEDS: PATIENT'S HOME MEDICATION PO PRN ×2 (11:52→16:24)
[2016-11-04] MEDS ORDERED: PROVENTIL NEB TX 0.083% 2.5MG/ 3ML NEB SCH (13:00)
[2016-11-04] MEDS ORDERED: SNACK - Diabetic Appropriate PO SCH (20:00)
[2016-11-04] MEDS ORDERED: NS 50 ML IV + SPIKE MINIBAG* 50 ML IV ONE (20:39)
[2016-11-04] MEDS: PULMICORT NEB TX 0.5 MG NEB SCH (20:50)
[2016-11-04] MEDS: PROVENTIL NEB TX 0.083% 2.5MG/ 3ML NEB SCH (20:50)
[2016-11-04] MEDS: PATIENT'S HOME MEDICATION PO SCH (20:57)
[2016-11-04] MEDS ORDERED: TOUJEO SOLOSTAR PEN SC SCH (21:00)
[2016-11-04] MEDS ORDERED: FENOFIBRATE MICRONIZED 134 MG PO SCH (21:00)
[2016-11-04] MEDS ORDERED: COUMADIN TAB 6 MG PO SCH (21:00)
[2016-11-04] MEDS ORDERED: FLOMAX PO SCH (21:00)
[2016-11-04] MEDS ORDERED: COUMADIN TAB 4 MG PO SCH (21:00)
[2016-11-04] MEDS: HumuLIN R SUBCUT PRN (22:59)
[2016-11-05 05:58] LABS: ALANINE AMINOTRANSFERASE 20 Units/L (12-78); ALBUMIN 2.9 g/dL (3.4-5.0); ALKALINE PHOSPHATASE 73 Units/L (46-116); ASPARTATE AMINO TRANSFERASE 24 Units/L (15-37); BLOOD UREA NITROGEN 27 mg/dL (7-18); CALCIUM 7.7 mg/dL (8.5-10.1); CARBON DIOXIDE 32.6 mmol/L (21-32); CHLORIDE 99 mmol/L (98-107); COR CA(FOR HYPOALB) 8.6 mg/dL (8.5-10.1); COR NA(FOR HYPERGLY) 141 mmol/L (136-145); CREATININE 1.48 mg/dL (0.70-1.30); GLUCOSE 286 mg/dL (65-99); SODIUM 137 mmol/L (136-145); TOTAL PROTEIN 6.8 g/dL (6.4-8.2); eGFR BLACK RACES > 60 (>60); eGFR NON BLACK RACES 51 (>60)
[2016-11-05 06:03] LABS: BASOPHILS % (AUTO) 0.5 % (0.2-1.0); EOSINOPHILS # (AUTO) 0.1 x10^3/uL (0.0-0.2); EOSINOPHILS % (AUTO) 0.7 % (0.9-2.9); HEMATOCRIT 35.6 % (42.0-54.0); LYMPHOCYTES # (AUTO) 1.3 X10^3/uL (1.3-2.9); MEAN CORPUSCULAR HEMOGLOBIN 29.3 pg (27.0-34.0); MEAN CORPUSCULAR HGB CONC 33.5 g/dL (33.0-35.0); MEAN CORPUSCULAR VOLUME 87.5 fL (80.0-100.0); MEAN PLATELET VOLUME 9.5 fL (7.4-11.0); MONOCYTES # (AUTO) 0.5 x10^3/uL (0.3-0.8); MONOCYTES % (AUTO) 6.1 % (0.0-13.0); NEUTROPHILS # (AUTO) 6.7 x10^3/uL (2.2-4.8); NEUTROPHILS % (AUTO) 77.7 % (42.0-75.0); PLATELET COUNT 219 X10^3/uL (150.0-450.0); RED BLOOD COUNT 4.07 X10^6/uL (4.7-6.0); RED CELL DISTRIBUTION WIDTH 15.9 % (11.6-16.5); WHITE BLOOD COUNT 8.7 X10^3/uL (3.6-10.0)
[2016-11-05] MEDS: REQUIP PO SCH (06:04)
[2016-11-05] MEDS: HumuLIN R SUBCUT PRN (06:08)
--- NOTE | 2016-11-05 07:38 | RAD ---
HISTORY: Shortness of breath Study: Chest one view Comparison: November 03, 2016 Findings: The patient is rotated to the right. The patient is status post median sternotomy. The heart remains enlarged. Mild pulmonary venous congestion is present peer E no interstitial or alveolar edema is i dentified. There has been interval development of abnormal parenchymal density in the right lung bas e. This could be due to some infiltrate or atelectasis accentuated by rotation. Follow up of this ar ea is recommended. The remainder of the lung iyer are clear. IMPRESSION: Cardiomegaly with mild residual pulmonary venous congestion Interval development of some increased density in the right lung base which could be on the basis of infiltrate or atelectasis and may be accentuated by rotation. Follow up of this area is recommended . Reported By:
[2016-11-05] MEDS ORDERED: ZOLOFT PO ONE (07:54)
[2016-11-05 08:42] VITALS: BP 106/82
[2016-11-05] MEDS ORDERED: COREG TAB 6.25 MG PO SCH (09:00)
[2016-11-05] MEDS ORDERED: ALDACTONE TAB 25 MG PO SCH (09:00)
[2016-11-05] MEDS: PULMICORT NEB TX 0.5 MG NEB SCH (10:07)
[2016-11-05] MEDS: PROVENTIL NEB TX 0.083% 2.5MG/ 3ML NEB SCH (10:08)
[2016-11-05] MEDS: ZOLOFT PO SCH (10:24)
[2016-11-05] MEDS: TEFLARO 400 MG in NS 50 ML IV 50 ML IV SCH (10:24)
[2016-11-05] MEDS: LANOXIN PO SCH (10:25)
[2016-11-05] MEDS: PriLOSEC PO SCH (10:25)
[2016-11-05] MEDS: M.S. CONTIN 30 MG EXTENDED RELEASE PO SCH (10:26)
[2016-11-05] MEDS: PATIENT'S HOME MEDICATION PO SCH (10:27)
[2016-11-05] MEDS ORDERED: MOTRIN TAB 800 MG PO ONE (11:08)
[2016-11-05] MEDS: NS 250 ML IV 250 ML IV SCH (13:23)
[2016-11-05] MEDS ORDERED: SNACK - Diabetic Appropriate PO SCH (20:00)
--- NOTE | 2016-11-06 14:11 | MRI ---
MRA OF THE LOWER EXTREMITIES WITHOUT CONTRAST HISTORY: Poor circulation in lower extremities. Comparison: None Technique: Non contrast imaging of the arterial structures of the lower extremities was performed. 3 D reconstructions were performed and evaluated. Findings: Markedly compromised examination secondary to patient motion as well as susceptibility artifact from metallic implants . This exam is essentially nondiagnostic when evaluating for patency of the arterial system below the level of the knees. The arterial system from the level of the common iliac arteries to the proximal popliteal arteries a ppear grossly patent. No large soft tissue masses. IMPRESSION: 1. Severely compromised examination as above. It should be noted that MRA is an inherently poor mod ality for evaluation of the circulatory system of the extremities, especially in a patient with mult iple metallic implants who cannot remain still for long periods of time. 2. Gross patency of the arteries from the level of the common iliac arteries to the more proximal po rtion of the popliteal arteries. Nondiagnostic for evaluation of the distal arterial system. Reported By:
== END 2016-11-05 13:00 | disposition home health service (06) ==
LOC: ER 20:22 → ICU 11-04 00:28
PROVIDERS: ADMIT Internal Medicine; ATTEND Internal Medicine
DX: R06.00 Dyspnea, unspecified (principal); J81.0 Acute pulmonary edema; I50.9 Heart failure, unspecified; R44.2 Other hallucinations; I25.10 Atherosclerotic heart disease of native coronary artery without angina pectoris; R06.02 Shortness of breath; I51.7 Cardiomegaly; E78.2 Mixed hyperlipidemia; I10 Essential (primary) hypertension; E11.621 Type 2 diabetes mellitus with foot ulcer; L97.519 Non-pressure chronic ulcer of other part of right foot with unspecified severity; R79.1 Abnormal coagulation profile; D64.89 Other specified anemias
CPT/HCPCS: 36415; 36600; 71010; 73718; 80053; 80061; 80162; 80307; 81001; 82550; 82553; 82803; 84484; 85025; 85610; 85730; 93005; 94640; 96365; 96374; 96375; 99284; A4216; A4222; G0378; G0434; J0712; J1815; J1940; J2930; J7613; J7620; J7626